=== PATIENT | male | born 1960 | race Caucasian/White ===

== ENCOUNTER 2019-03-29 08:30 | Outpatient (RCR) | payer OTHER, SELFPAY ==
--- NOTE | 2019-02-13 09:55 | HP.PTEVAL ---
Patient's Visit Information ARIANNA OROSCO is a 59 year old M referred to Physical Therapy by Jluis Guzman MD with a diagnosis of vertigo. Date of Evaluation: 02/13/19 Physical Therapist: Jluis Orosco, DPT, OCS, CSCS - Visit Plan Frequency: 2-3x /Week Duration: 4-6 Weeks Plan: 2-3x/week for 2-4 weeks to start. Given head turns 5 reps 5x /day as habituation ex. monitor this for progression, see EG if questions. Otherwise... Treat with manual c/s traction, R c/s STM adn PROM to end range of rotation and ext to tolerance. Please show cervical and postural strength for HEP. Back to doctor after 2 weeks if not improving as patient has not had other workups. - Subjective Findings: Dizzyness and doctor thinks its neck related. Been dizzy 18 months and seen 3 doctors for prednosone and infections. Had a head cold about 18 months ago and feels he just woke up with dizzyness. Bending adn getting up seem to bring it on. Has slight bit of mostion sickness much of time almost constantly. Been goofy for 18 months slightly . Quick movements seem to make it worse. Turning head makes it worse. Sleep is OK. No worse lying down. Not on dizzy meds. No heart or head scans done. Dr. guzman did not think he needed them nor did his famiy doctors. Works as a salesman selling furniture walking running, lifting. Has nto missed work due to this. Has to stop and sit at times with lightheadedness. Heavy work is worse. Heavy meaning lifting or head movement. Basic ADLs are OK and getting done. Hates exercise. [employer] work chicken [employer]s. Balance is OK, worse if lightheadedness is worse. No falls. No numbness in legs. No neck pain. R sided neck pain with turning head R yesterday in doctor office. GUILLEN now and then slightly, dull GUILLEN. - Pain GUILLEN Pain Intensity (Out of 10): 0 Pain Intensity Range: 0, 3 - Objective Walks well adn without deviations, trasnfers I. steps reciprocal withotu rail. - B [address] rd, - roll test. c/s AROM ext 44, R rotation 65 adn l rotation 64 adn pain to the right in the R c/s. UE aROM WNL. reflexes 2/3 nico dn tri. Sensation WNl in B UE. repeated retraction increases dizzyness.repeated protrusion NE. oculomotor: no nystagmus with gaze o head shake. pursuit normal. Saccades adn VOR both cause some increase symptoms transiently. - skew eye deviation. normal convergence. MSQ:head turns dizzy as our repeated 180 degree turns. HD - nystagmus but does get slightly dizzy B. others OK. No tenderness in neck. - c/s compression test. - Balance Scores Functional Gait Assessment Score: 30 % Disability: 0 CATSIB Score (Max score 120 seconds): 120 - Goals Goal 1:: Pt feel 75% better in dizzy feeling Goal Time Frame: 4-6 Weeks Goal 2:: Pt be I in appropriate ex to continue progress at home Goal Time Frame: 4-6 Weeks Goal 3:: DHI< 10% Goal Time Frame: 4-6 Weeks - Rehabilitation Potential Physical Therapy Diagnosis: vertigo unknown origin. cervical vs vest hypofunction Rehabilitation Potential: Questionable - Anticipated Interventions Patient/Client Instruction: Educate patient on: Condition, Plan of Care For the Purpose of:: To increase tolerance to activity/condition/position Therapeutic Exercise to Include: Strength training, Postural training, Passive ROM, Active ROM Comment: habituation For the Purpose of:: To improve performance and independence with ADL's, To improve ability of physical actions for home/community/work/leisure Manual Therapy Techniques to Include: Mobilization, Passive ROM Comment: manual traction For the Purpose of:: To increase tolerance to activity/condition/position, To improve ability of physical actions for home/community/work/leisure Thank you for the opportunity to evaluate your patient. For Medicare and Medicare HMO plans, please review the plan of care and approve it. It will need to be FAXED BACK to us at [phone] for Medicare purposes. For Medicare only, by signing this I certify the plan of care. Please let me know if there are questions or concerns regarding this plan of care. Physician Signature: Date:
--- NOTE | 2019-03-08 10:52 | HP.PTREVAL ---
Jluis Guzman MD, It has been my pleasure to treat ARIANNA OROSCO over the last 7 visits for vertigo. Please see the progress note below for an update on the physical therapy plan of care! Subjective: Getting better. Feels better overall. Non compliant with much exercises. Not having volume of hearing loss. Overall dizzyness much better. still gets it with bending but does not linger. GUILLEN much less. Neck pain is tight but not painful. To doctor in 2-3 weeks will see Megan. Objective/Function: 70 B rotation. 60 ext with OP no pain. Improving ROM and posture. Plan Plan: weekly x 3-4 for continue DTR/STM to neck adn cotninued PROM and encouragement of HEP Goals Goal 1:: Pt feel 75% better in dizzy feeling Goal Time Frame: 4-6 Weeks Goal Progress: Progressing Goal 2:: Pt be I in appropriate ex to continue progress at home Goal Time Frame: 4-6 Weeks Goal Progress: Goal Met, non compliant Goal 3:: DHI< 10% Goal Time Frame: 4-6 Weeks Goal Progress: Progressing Anticipated Interventions Patient/Client Instruction: Educate patient on: Condition, Plan of Care For the Purpose of:: To increase tolerance to activity/condition/position Therapeutic Exercise to Include: Strength training, Postural training, Passive ROM, Active ROM Comment: habituation For the Purpose of:: To improve performance and independence with ADL's, To improve ability of physical actions for home/community/work/leisure Manual Therapy Techniques to Include: Mobilization, Passive ROM Comment: manual traction For the Purpose of:: To increase tolerance to activity/condition/position, To improve ability of physical actions for home/community/work/leisure Please do not hesitate to contact me at [phone] by phone or if you have questions or concerns regarding this new plan of care! Sincerely, Jluis Orosco, DPT, OCS, CSCS
--- NOTE | 2019-03-29 09:16 | HP.PTDCSUM_ITS ---
HP - PT D/C Summary It has been my pleasure to treat ARIANNA OROSCO under orders from Jluis Guzman MD, for the diagnosis of vertigo for a total of 11 visit(s). Discharge Date: 03/29/19 Please see the following information for a summary of their discharge status. - Subjective Subjective: Saw Dr. Guzman again adn he thinks his blood pressure meds may be out of whack adn causing dizzyness. Dizzyness is better with treatment up to 80- 90% better but still has flashes of dizzyness with sitting up. Neck feels better. GUILLEN much better. Life is normal activitiy garcia. Gets lightheaded feelign daily for up to a few hours. - Pain GUILLEN Pain Intensity (Out of 10): 0 - Overall Improvement % Improvement: 80 - Objective Objective/Function: ROM c/s WFL adn without pain today 50 ext adn approx 60 B rotations. FGA is good. - Goals Goal 1:: Pt feel 75% better in dizzy feeling Goal Progress: at times Goal 2:: Pt be I in appropriate ex to continue progress at home Goal Progress: Goal Met, non compliant Goal 3:: DHI< 10% Goal Progress: Progressing - Plan Plan: d/c - D/C Information Discharge Comments: Patient will f/u with family doctor as requested by Dr. Guzman for blood pressure meds check. If there are questions or concerns regarding this patient's physical therapy, please feel free to call me at [phone]. Thank you for the referral of this patient. Sincerely, Jluis Orosco, DPT, OCS, CSCS
== END 2019-03-29 19:00 | disposition home or self-care (01) ==
LOC: PT 08:30
PROVIDERS: Family Provider Family Medicine; PCP Family Medicine; Referring Provider Otolaryngology; Visit Provider Otolaryngology
DX: R42 Dizziness and giddiness (principal)
CPT/HCPCS: 97110; 97140; 97163; 97530

== ENCOUNTER → 2020-03-12 | Outpatient (CLI) | payer BC, SELFPAY ==
[2020-03-12 10:26] LABS: ALB/GLOB Ratio 1.1 RATIO (0.9-2.4); AST(SGOT) 11 U/L (15-37); Alanine Aminotransfer ALT/SGPT 22 U/L (16-61); Albumin, Serum 3.7 g/dL (3.2-5.0); Alkaline Phosphatase 48 U/L (45-117); Anion Gap 5 (5-15); BUN 14 mg/dL (7-18); BUN/Creat Ratio 11.4 RATIO (10-20); Calcium,Total 8.8 mg/dL (8.5-10.1); Chloride 107 mmol/L (98-107); Cholesterol 169 mg/dL (200); Creatinine, Serum 1.23 mg/dL (0.70-1.30); EST Glomerular Filtration Rate 63 mL/min (>60); Est Glom Filt Rate - Afr Amer 77 mL/min (>60); Globulin 3.3 g/dL (2.2-4.2); Glucose 115 mg/dL (74-106); High Density Lipoprotein 34 mg/dL; PSA,Total- Diagnostic 2.56 ng/mL (0.0-4.0); Potassium 3.9 mmol/L (3.5-5.1); Sodium Level 140 mmol/L (136-145); Triglycerides 125 mg/dL; Very Low Density Lipoprotein 25 mg/dL (5-40)
== END | disposition home or self-care (01) ==
LOC: MFPLAB 08:38
PROVIDERS: PCP Family Medicine; Referring Provider Family Medicine; Visit Provider Family Medicine
DX: E78.00 Pure hypercholesterolemia, unspecified (principal); R35.0 Frequency of micturition
CPT/HCPCS: 36415; 80053; 80061; 84153

== ENCOUNTER → 2020-09-18 07:30 | Outpatient (CLI) | payer BC, SELFPAY ==
[2020-09-18 10:32] LABS: PSA,Total- Diagnostic 2.85 ng/mL (0.0-4.0)
[2020-09-18 10:34] LABS: Hemoglobin A1c 5.6 % (3.8-5.6)
== END ==
PROVIDERS: PCP Family Medicine; Referring Provider Family Medicine; Visit Provider Family Medicine
DX: R73.01 Impaired fasting glucose (principal); R35.0 Frequency of micturition
CPT/HCPCS: 36415; 83036; 84153

== ENCOUNTER → 2020-12-22 10:36 | Outpatient (CLI) | payer BC, SELFPAY ==
[2020-12-22 13:10] LABS: HIV - WCH Non-Reactive (Nonreactive); Syphilis Antibodies Non-reactive
[2020-12-22 16:44] LABS: Chlamydia Trachomatis by PCR Negative (Negative)
[2020-12-22 16:45] LABS: Probe Check PASS; Sample Adequacy Control PASS; Specimen Processing Control PASS
[2020-12-23 08:09] LABS: HEPATITIS B SURFACE AG Negative (Negative); Hepatitis A AB, Total Positive (Negative); Hepatitis A IgM Antibody Negative (Negative); Hepatitis B Core AB IgM Negative (Negative); Hepatitis B Core Ab Total Negative (Negative); Hepatitis C Ab <0.1 s/co ratio (0.0-0.9)
[2020-12-23 10:20] LABS: Hep B Surface Antibodies Non Reactive (.)
== END ==
PROVIDERS: PCP Family Medicine; Referring Provider Family Medicine; Visit Provider Family Medicine
DX: Z72.51 High risk heterosexual behavior (principal)
CPT/HCPCS: 36415; 86703; 86704; 86705; 86706; 86708; 86709; 86780; 86803; 87340; 87491

== ENCOUNTER → 2021-04-27 07:10 | Outpatient (CLI) | payer BC, SELFPAY ==
--- NOTE | 2021-04-27 07:12 | ECHOCS_ITS ---
Reason For Study: Afib/Flutter Procedure This was a 2D Doppler, Color Flow transthoracic echocardiogram. The study was technically difficult. Contrast injection was performed. Exam performed in department. Left Ventricle Normal left ventricle. Left ventricular systolic function is normal. The estimated ejection fraction is 60 %. Stage 1 diastolic dysfunction. No regional wall motion abnormalities noted. Right Ventricle Normal RV size. Normal systolic function. Atria Normal left atrium. Normal right atrium. Mitral Valve Normal mitral valve. Tricuspid Valve Normal tricuspid valve. Aortic Valve Normal aortic valve. Trisinus/trileaflet aortic valve. Pulmonic Valve The pulmonic valve is not well visualized. Great Vessels Normal aortic root. The pulmonary artery is normal size. Normal inferior vena cava. Pericardium/Pleural No pericardial effusion. Medication 22 gauge I.V. with prn adaptor inserted into right arm. Diluted definity 3ml given slow IV push to enhance endocardial definition. MMode/2D Measurements & Calculations LVIDd: 4.5 cm IVSd: 1.3 cm LA dimension: 3.6 cm LVIDs: 2.2 cm LVPWd: 1.2 cm FS: 50.5 % LAV(MOD-bp): 50.6 ml LA A4 area: 17.8 cm2 RA A4 area: 14.1 cm2 LAV(MOD-bp) Indexed: 23.7 ml/m2 LAV(MOD-sp2): 50.4 ml LAV(MOD-sp4): 49.3 ml Time Measurements MV dec time: 0.30 sec Doppler Measurements & Calculations MV E max esa: 52.8 cm/sec Lat Peak E' Esa: 13.9 cm/sec Med Peak E' Esa: 7.8 cm/sec MV A max esa: 76.2 cm/sec E/E' lat: 3.8 E/E' med: 6.8 MV E/A: 0.69 MV V2 max: 75.5 cm/sec MV P1/2t max esa: 68.2 cm/sec Ao V2 max: 124.1 cm/sec MV max P.3 mmHg MV P1/2t: 70.6 msec Ao max P.2 mmHg MV V2 mean: 45.9 cm/sec MV dec slope: 282.7 cm/sec2 MV mean P.97 mmHg MV V2 VTI: 19.4 cm MVA(P1/2t): 3.1 cm2 LV V1 max: 115.1 cm/sec PA V2 max: 111.7 cm/sec LV V1 max P.3 mmHg ECHO/Echo Complete W/ Contrast Interpretation Summary Normal left ventricle. Left ventricular systolic function is normal. The estimated ejection fraction is 60 %. Stage 1 diastolic dysfunction. Contrast injection was performed. Ordering Physician: Leonard Dai Referring Physician: Leonard Dai Performed By: Ervin Salomon RCS
--- NOTE | 2021-04-27 17:39 | STRESSREP ---
Stress Test Report Exercise myocardial perfusion stress test. 61-year-old man with a history of atrial fibrillation. Medications atorvastatin bupropion metoprolol. Stress protocol: Rest EKG demonstrates sinus bradycardia with a rate of 54 bpm normal intervals are noted resting blood pressure is 118/70 mmHg. The patient exercised according to regular Jeremías protocol for total duration of 9 minutes and 30 seconds. Patient completed 30 seconds into stage IV of the Jeremías protocol the maximum heart rate attained was 122 bpm which was 77% of maximum predicted heart rate the maximum workload was 11.7 metabolic equivalents. At rest there were no ST or T wave changes noted to suggest ischemia and at peak exercise upsloping ST changes were noted with did not meet the criteria for ischemia. No clinical angina was noted the test was terminated due to dyspnea. The peak blood pressure was noted to be 180/68 mmHg. Myocardial perfusion protocol. 11.0 mCi of technetium 99m sestamibi was injected at rest. The patient exercised according to regular Jeremías protocol for total duration of 9-1/2 minutes and at peak exercise 33.7 mCi of technetium 99m sestamibi was injected stress images were obtained stress and rest images were reconstructed and compared in the short axis vertical long and horizontal long axis. Gated images were also obtained per Perfusion SPECT analysis: Review of the stress images demonstrated normal uptake of tracer noted in all areas of the myocardium. The resting images similarly demonstrated normal uptake of tracer noted in all areas of the myocardium. There were no areas of reversibility to suggest ischemia and no previous infarct was noted. Gated SPECT analysis: The gated ejection fraction was noted to be 57%. Conclusion: Normal exercise myocardial perfusion stress test at a high workload. Preserved ejection fraction. Excellent functional capacity noted.
== END ==
PROVIDERS: PCP Family Medicine; Referring Provider Internal Medicine Cardiovascular Disease; Visit Provider Internal Medicine Cardiovascular Disease
DX: I48.0 Paroxysmal atrial fibrillation (principal); I48.92 Unspecified atrial flutter
CPT/HCPCS: 78452; 93017; 93306; A9500; Q9957; A4216; C8929; J3490

== ENCOUNTER → 2021-05-19 14:10 | Outpatient (CLI) | payer BC, SELFPAY ==
[2021-05-19 18:20] LABS: Anion Gap 5 (5-15); BUN 18 mg/dL (7-18); BUN/Creat Ratio 15.9 RATIO (10-20); Calcium,Total 8.8 mg/dL (8.5-10.1); Chloride 106 mmol/L (98-107); Cholesterol 176 mg/dL (200); Creatinine, Serum 1.13 mg/dL (0.70-1.30); EST Glomerular Filtration Rate 70 mL/min (>60); Est Glom Filt Rate - Afr Amer 84 mL/min (>60); Glucose 88 mg/dL (74-106); High Density Lipoprotein 37 mg/dL; Potassium 4.4 mmol/L (3.5-5.1); Sodium Level 138 mmol/L (136-145); Triglycerides 87 mg/dL; Very Low Density Lipoprotein 17 mg/dL (5-40)
[2021-05-19 19:58] LABS: Chlamydia Trachomatis by PCR Negative (Negative); Neisserai gonorrhoeae by PCR Negative (Negative); Probe Check PASS; Sample Adequacy Control PASS; Specimen Processing Control PASS
[2021-05-20 08:38] LABS: HIV - WCH Non-Reactive (Nonreactive); Syphilis Antibodies Non-reactive
== END ==
PROVIDERS: PCP Family Medicine; Referring Provider Family Medicine; Visit Provider Family Medicine
DX: E78.00 Pure hypercholesterolemia, unspecified (principal); Z72.51 High risk heterosexual behavior; I10 Essential (primary) hypertension
CPT/HCPCS: 36415; 80048; 80061; 86703; 86780; 87491; 87591

== ENCOUNTER → 2022-01-12 | Outpatient (CLI) | payer BC, SELFPAY ==
--- NOTE | 2022-01-12 15:32 | NEURO ---
NCS and/or EMG Patient Report Ordering Doctor: Ankur Acevedo DATE OF SERVICE: 01/12/22 Tavon presents for electrodiagnostic testing of the right upper limb. He has numbness and tingling in the right hand radiating into the arm. Electrodiagnostic findings: Right median motor nerve demonstrates normal distal latency, amplitude and conduction velocity. Normal right ulnar motor response. Normal median and ulnar F waves. Normal median sensory latency at the wrist. Normal median palmar latency. Normal ulnar and radial sensory responses. On needle EMG, all muscles tested in the right upper limb showed no evidence of denervation with normal motor unit action potentials. Electrodiagnostic impression: There is a normal electrodiagnostic study of the right upper limb. There is no electrodiagnostic evidence for peripheral neuropathy, including carpal tunnel syndrome.
== END | disposition home or self-care (01) ==
LOC: PSN 14:32
PROVIDERS: PCP Family Medicine; Referring Provider Family Medicine; Visit Provider Family Medicine
DX: R20.0 Anesthesia of skin (principal)
CPT/HCPCS: 95886; 95910

== ENCOUNTER → 2022-04-06 | Outpatient (CLI) | payer BC, SELFPAY ==
--- NOTE | 2022-04-06 13:58 | ART_ITS ---
Reason For Study: Numbness of right hand Procedure A bilateral upper extremity continuous wave Doppler with analog waveform analysis and segmental pressures. Left Segmental Pressures Left brachial= 111mmHg. Left radial= 144mmHg. Left ulnar= 138mmHg. Left digit = 135 mmHg. The left radial waveforms are triphasic. The left ulnar waveforms are triphasic. Right Segmental Pressures Right brachial= 115mmHg. Right radial= 145mmHg. Right ulnar= 154mmHg. Right digit = 142 mmHg. The right radial waveforms are triphasic. The right ulnar waveforms are triphasic. Indices The wrist-braichial index by the radial artery is 1.26. The wrist-brachial index by the ulnar artery is 1.34. The right digital-brachial index is 1.23. The wrist-braichial index by the radial artery is 1.25. The wrist-brachial index by the ulnar artery is 1.20. The left digital-brachial index is 1.17. VL/Upper Extremity Arterial Study Interpretation Summary Normal right radial and ulnar wrist brachial indices of 1.26 and 1.34 respectiv camille with normal triphasic Doppler waveforms Normal right upper extremity volume pulse recordings with normal digital brachi al index of 1.23 Normal left upper extremity radial and ulnar wrist brachial indices of 1.25 and 1.2 respectively with normal triphasic Doppler waveforms Left upper extremity volume pulse recordings with normal digital brachial index of 1.17 Ordering Physician: Ankur Acevedo Referring Physician: ANKUR ACEVEDO MD Performed By: Emi Head RVT
== END | disposition home or self-care (01) ==
LOC: CVS 13:56
PROVIDERS: PCP Family Medicine; Referring Provider Family Medicine; Visit Provider Family Medicine
DX: R20.0 Anesthesia of skin (principal)
CPT/HCPCS: 93923

== ENCOUNTER → 2022-05-04 | Outpatient (CLI) | payer BC, SELFPAY ==
[2022-05-04 18:02] LABS: Erythrocyte Sedimentation Rate 9 mm/hr (0-20)
[2022-05-04 18:23] LABS: CRP < 2.90 mg/L (0.0-3.0); Rheumatoid Factor < 10.0 IU/mL (<15)
[2022-05-06 18:22] LABS: ANTINUCLEAR ANTIBODIES DIRECT Negative (Negative)
== END | disposition home or self-care (01) ==
LOC: MFPLAB 17:06
PROVIDERS: PCP Family Medicine; Referring Provider Family Medicine; Visit Provider Family Medicine
DX: M79.89 Other specified soft tissue disorders (principal)
CPT/HCPCS: 36415; 85652; 86038; 86140; 86431

== ENCOUNTER 2023-01-16 10:05 | Observation (INO) | payer BC, SELFPAY ==
[2023-01-16] VITALS (11 sets, daily range): BP systolic 107–145; BP diastolic 76–105; PULSE 64–119; RESP 14–18; TEMP 36.2–36.6; O2SAT 93–98; BMI 29.0; BMI 29.1
--- NOTE | 2023-01-16 10:18 | EKG12_ITS ---
Test Reason : CP Blood Pressure : / mmHG Vent. Rate : 085 BPM Atrial Rate : 000 BPM P-R Int : 000 ms QRS Dur : 088 ms QT Int : 330 ms P-R-T Axes : 000 -18 003 degrees QTc Int : 392 ms Atrial fibrillation Abnormal ECG Confirmed by VIGNESH VILLEGAS ([id number]), supervising film or videotape editor ERLIN SUAREZ ([id number]) on 01/21/2023 9:28:59 AM Referred By: MARIANN Confirmed By:VIGNESH VILLEGAS
--- NOTE | 2023-01-16 10:19 | EDS_ITS ---
HPI History of Present Illness Chief Complaint: Chest Pain Informant: patient Onset/Context/Timing Onset: Weeks Activity at onset: gradual Timing: Waxes and wanes Narrative Narrative: Patient presents from cardiology office secondary to chest pain. He states about 10 days ago he had rather significant substernal chest pain with pain in his left elbow. He continues to have some mild pain but is moved to the left shoulder region. 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 He denies shortness of breath. He has a history of paroxysmal A-fib and is in A-fib today. He takes baby aspirin only secondary to a load chads Vas score. He reports having a stress test in the past but he has never had a heart cath. [facility] Medical History Anxiety BPH (benign prostatic hyperplasia) Erectile dysfunction Essential hypertension GERD (gastroesophageal reflux disease) Hyperlipidemia IBS (irritable bowel syndrome) Malignant melanoma of left shoulder Paroxysmal atrial fibrillation Personal history of malignant melanoma Home Medications atorvastatin 10 mg tablet 10 mg PO QHS 03/31/21 [History Last Taken 01/15/23] bupropion HCl 300 mg 24 hr tablet, extended release 300 mg PO DAILY 03/31/21 [History Last Taken 01/16/23] metoprolol tartrate 25 mg tablet 75 mg PO BID 03/31/21 [History Last Taken 01/16/23] omeprazole 20 mg capsule,delayed release 20 mg PO DAILY 03/31/21 [History Last Taken 01/16/23] loratadine 10 mg tablet 10 mg PO DAILY 10/25/22 [History Last Taken 01/16/23] tamsulosin 0.4 mg capsule 0.8 mg PO QHS 10/25/22 [History Last Taken 01/15/23] aspirin 81 mg tablet,delayed release (Adult Aspirin Regimen) 81 mg PO DAILY 01/12/23 [History Last Taken 01/16/23] Allergy/AdvReac Type Severity Reaction Status Date / Time amoxicillin [From Augmentin] AdvReac gi upset Verified 01/16/23 10:08 cerivastatin [From Baycol] AdvReac unknown Verified 01/16/23 10:08 clavulanic acid AdvReac gi upset Verified 01/16/23 10:08 [From Augmentin] fluoxetine AdvReac lethargic Verified 01/16/23 10:08 sertraline AdvReac gi upset Verified 01/16/23 10:08 Family History Mother Heart disease Atrial flutter/atrial fib Father CAD (coronary artery disease), Onset Age: 83 CABG Social History Smoking Status: Never smoker alcohol intake: current alcohol intake frequency: a few times a week substance use type: does not use caffeine: Yes Type: carbonated beverages Number of servings: 2 and coffee Number of servings: 2 ROS ROS ED Constitutional Constitutional ED: Denies chills or fever(s) Eyes Eyes: Denies change in vision or discharge from eye(s) ENT ENT ED: Denies discharge from eye(s), rhinorrhea or sore throat Cardiovascular Cardiovascular: Reports chest pain; Denies palpitations Respiratory/Chest Respiratory/Chest: Denies cough or dyspnea Gastrointestinal Gastrointestinal: Denies abdominal pain, nausea or vomiting Musculoskeletal Musculoskeletal: Denies back pain or extremity pain Integumentary Denies Abrasions or rash Neurologic Neurologic: Denies headache(s) or weakness Psychiatric Psychiatric: Denies anxiety or depression Allergic/Immunologic Allergic/Immunologic ED: Denies lip swelling or urticaria EXAM Physical Exam Const Vital Signs: 01/16/23 10:06 01/16/23 10:08 01/16/23 10:18 Temperature 97.1 F L Temperature Source Temporal Pulse Rate 83 Respiratory Rate 18 Respiratory Effort Normal Blood Pressure 131/103 H Blood Pressure Mean 112 Pulse Ox 96 Oxygen Delivery Method Room Air Room Air Positive well nourished and well developed General Appearance ED: well developed HEENT Reports normocephalic and head/scalp atraumatic Eyes PERRL and EOMs intact bilaterally Neck supple Chest Wall inspection of chest normal and palpation of chest normal Resp normal respiratory effort and clear to auscultation bilaterally Cardio Rhythm: abnormal rhythm irregularly irregular GI normal to inspection, nondistended, normoactive bowel sounds Palpation: soft Extremity normal to inspection Neuro oriented x3 and no sensory deficits noted Sensorium / Orientation: alert Motor Exam: strength 5/5 throughout Psych mental status grossly normal Skin no rashes or lesions noted Heart Score History: Moderately Suspicious ECG: Normal Age: >45 - <65 years Risk Factors: 1 or 2 Risk Factors Troponin: </= Normal Limit Score: 3 MDM MDM MDM Narrative Medical decision making narrative: Patient did take 1 baby aspirin this morning so was given 3 additional baby aspirin at this time. Patient placed on manager monitoring. EKG obtained to evaluate for cardiac arrhythmia/ischemia. Labwork obtained to evaluate for leukocytosis, anemia, and electrolyte derangement. Chest x-ray obtained to evaluate for acute lung pathology, cardiac size, or mediastinal abnormality. History & Record Review Discussion w/independent historian: Patient Additional record(s) reviewed:: Prior outpatient record and Prior labs Lab Data Attestation: I reviewed the patient's lab results. Labs: Laboratory Results - last 24 hr 01/16/23 10:30 WBC 6.9 RBC 5.45 Hgb 17.1 H Hct 51.0 MCV 93.6 MCH 31.4 MCHC 33.5 RDW Std Deviation 43.3 RDW Coeff of Praveena 12.6 Plt Count 96 L MPV 10.7 Immature Gran % (Auto) 0.400 Neut % (Auto) 67.8 Lymph % (Auto) 19.9 Bowie % (Auto) 9.6 Eos % (Auto) 1.6 Baso % (Auto) 0.7 Absolute Neuts (auto) 4.7 Absolute Lymphs (auto) 1.37 Nucleated RBC % 0 Sodium 138 Potassium 4.2 Chloride 108 H Carbon Dioxide 27.0 Anion Gap 3 L BUN 22 H Creatinine 1.41 H Est GFR (MDRD) Af Amer 65 Est GFR (MDRD) Non-Af 54 L BUN/Creatinine Ratio 15.6 Glucose 117 H Calcium 8.9 Troponin I High Sens 4 Radiography Chest X-Ray - ED: 1 View, Read by ED Physician, Normal, Heart, Lungs and Mediastinum Diagnostic Testing: Clinical Impression(s) from Imaging Studies Chest X-Ray 01/16/23 10:30 IMPRESSION: No acute abnormality is seen. Electronically Signed: Joseph Garcia MD at 10:56 EDT , EKG Initial EKG: Attestation: I personally reviewed and interpreted this EKG as follows: Interpretation: Atrial Fibrillation (Atrial fibrillation [address] change.) Differential Diagnosis Chest pain/SOB: ACS ACS: Positive for no evidence of ACS based on cardiac biomarkers and EKG without ischemia and pneumothorax Reason(s) pneumothorax less likely: Positive for bilateral breath sounds and DOUBLE BOTTOM DRIVER withhout PTX Treatment and Re-Evaluation :: On repeat evaluation patient resting comfortably. CBC was normal white count at 6.9. Hemoglobin is concentrated at 17.1. Chemistry studies reveal a BUN of 22 and a creatinine of 1.41. This is an increased when compared to his prior labs from 2 years ago. His troponin is 4. Portable chest x-ray per my interpretation reveals no acute abnormalities. Given the hemoconcentration and bump in creatinine, a liter of IV fluids is ordered. I spoke with Dr. Mtz, on-call for cardiology. He asked that the patient be admitted for further evaluation and probable stress test in the morning. I contacted the hospitalist. Discharge Plan Triage Chief Complaint: Chest Pain ED Provider: Ivone Marsh Dx/Rx/DC Orders Clinical Impression: Chest pain Prescriptions: No Action metoprolol tartrate 25 mg tablet 75 mg PO BID omeprazole 20 mg capsule,delayed release(DR/EC) 20 mg PO DAILY atorvastatin 10 mg tablet 10 mg PO QHS bupropion HCl 300 mg tablet extended release 24 hr 300 mg PO DAILY tamsulosin 0.4 mg capsule 0.8 mg PO QHS loratadine 10 mg tablet 10 mg PO DAILY aspirin [Adult Aspirin Regimen] 81 mg tablet,delayed release (DR/EC) 81 mg PO DAILY Primary Care Provider: Ankur Acevedo Referrals: Ankur Acevedo MD [Primary Care Provider] - Disposition Disposition: Acute Care Hospital [facility]
[2023-01-16] MEDS: Aspirin 81 MG TAB.CHEW 243 MG PO (10:27)
--- NOTE | 2023-01-16 10:30 | RAD_ITS ---
STUDY: X-RAY CHEST REASON FOR EXAM: Male, 62 years old. Chest pain TECHNIQUE: Single AP portable view of the chest. COMPARISON: None. FINDINGS: EKG electrodes are seen. The lungs are clear and expanded. There is no demonstrated pleural abnormality. Normal size heart. Normal mediastinum and jose miguel. Normal visualized pulmonary arteries. Normal visualized aortic arch and descending thoracic aorta. There are degenerative changes of the visualized thoracic spine. Normal visualized ribs, clavicles, and shoulders. There is no demonstrated abnormality of the visualized soft tissue structures of the upper abdomen. RAD/Chest 1 View (Portable) IMPRESSION: No acute abnormality is seen. Electronically Signed: Joseph Garcia MD at 10:56 EDT ,
[2023-01-16 10:39] LABS: Absolute Lymphocyte Count 1.37 X10^3/uL (0.83-4.51); Absolute Neutrophil Count 4.7 X10^3/uL (2.0-7.7); Basophil# 0.05 X10^3/uL; Basophil% 0.7 % (0-1); Eosinophil# 0.11 X10^3/uL; Eosinophils% 1.6 % (0-5); Hemoglobin 17.1 g/dL (13.0-16.5); Lymphocyte # 1.37 X10^3/ul (0.83-4.51); Lymphocyte % 19.9 % (19-41); Mean Corp Hgb Conc 33.5 g/dL (32-36); Mean Corpuscular Hgb 31.4 pg (27.0-32.0); Mean Corpuscular Volume 93.6 fL (80-94); Mean Platelet Vol. 10.7 fl (6.2-12.0); Monocyte# 0.66 X10^3/uL; Monocyte% 9.6 % (0-10); NRBC Flagged by Analyzer 0 % (0-5); Neutrophil # 4.65 X10^3/uL (2.7-7.7); Neutrophil % 67.8 % (47-70); POSITIVE COUNT YES; Platelet Count 96 K/mm3 (150-450); RBC Distribution Width CV 12.6 % (11.6-14.6); RBC Distribution Width SD 43.3 fl (35.1-43.9); Red Blood Count 5.45 M/mm3 (4.6-6.2); White Blood Count 6.9 K/mm3 (4.4-11.0)
[2023-01-16 10:55] LABS: Anion Gap 3 (5-15); BUN 22 mg/dL (7-18); BUN/Creat Ratio 15.6 RATIO (10-20); Calcium,Total 8.9 mg/dL (8.5-10.1); Chloride 108 mmol/L (98-107); Creatinine, Serum 1.41 mg/dL (0.70-1.30); EST Glomerular Filtration Rate 54 mL/min (>60); Est Glom Filt Rate - Afr Amer 65 mL/min (>60); Glucose 117 mg/dL (74-106); Potassium 4.2 mmol/L (3.5-5.1); Sodium Level 138 mmol/L (136-145); Troponin-I HS (w/2H Reflex) 4 pg/mL (3.0-78.0)
[2023-01-16] MEDS: 0.9% Normal Saline 1,000 ML 999 ML IV (11:16)
[2023-01-16 12:34] LABS: Reflex Troponin-HS? (from REC) Y
[2023-01-16 13:13] LABS: Troponin-I HS 4 pg/mL (3.0-78.0)
--- NOTE | 2023-01-16 13:22 | CON.PCM.CA_ITS ---
Documented by User: Cecelia BROCK, DELMY 01/16/23 13:30 Assessment & Plan Assessment/Plan (1) Chest pain: (2) Paroxysmal atrial fibrillation: (3) Essential hypertension: (4) Hyperlipidemia: PLAN: Plan * With patient's chest and arm discomfort, concerned this could be angina related, would like to obtain a stress test and echocardiogram for further evaluation. * Patient does turn 63 in a few weeks. At that time he will be a [id number] of 2. After patient does have his stress test would like to switch him over to Eliquis. He patient will be anticoagulated with Lovenox prior to his stress test. His rate is controlled on his current dose of metoprolol. HPI Consult Data Date of Consult: 01/16/23 HPI Narrative HPI Narrative: ARIANNA CRESPO, is a 62 M who presented to the office for an EKG today for concerns over afib. Since he was not anticoagulated he was asked to come in for an EKG. at that time he had noted chest pain and arm pain for the last couple weeks. Based on the chest and arm pain he was asked to go to the emergency room for further evaluation. His troponins are negative x2. Patient does have a history of hypertension and paroxysmal atrial fibrillation. Based on patient's symptoms of chest and arm pain would like for patient to be admitted to the hospital for further cardiac evaluation to obtain a stress test and an echocardiogram. ON LICENSE OF [facility] Medical History Anxiety BPH (benign prostatic hyperplasia) Erectile dysfunction Essential hypertension GERD (gastroesophageal reflux disease) Hyperlipidemia IBS (irritable bowel syndrome) Malignant melanoma of left shoulder Paroxysmal atrial fibrillation Personal history of malignant melanoma Home Medications atorvastatin 10 mg tablet 10 mg PO QHS 03/31/21 [History Last Taken 01/15/23] bupropion HCl 300 mg 24 hr tablet, extended release 300 mg PO DAILY 03/31/21 [History Last Taken 01/16/23] metoprolol tartrate 25 mg tablet 75 mg PO BID 03/31/21 [History Last Taken 01/16/23] omeprazole 20 mg capsule,delayed release 20 mg PO DAILY 03/31/21 [History Last Taken 01/16/23] loratadine 10 mg tablet 10 mg PO DAILY 10/25/22 [History Last Taken 01/16/23] tamsulosin 0.4 mg capsule 0.8 mg PO QHS 10/25/22 [History Last Taken 01/15/23] aspirin 81 mg tablet,delayed release (Adult Aspirin Regimen) 81 mg PO DAILY 01/12/23 [History Last Taken 01/16/23] Allergy/AdvReac Type Severity Reaction Status Date / Time amoxicillin [From Augmentin] AdvReac gi upset Verified 01/16/23 10:08 cerivastatin [From Baycol] AdvReac unknown Verified 01/16/23 10:08 clavulanic acid AdvReac gi upset Verified 01/16/23 10:08 [From Augmentin] fluoxetine AdvReac lethargic Verified 01/16/23 10:08 sertraline AdvReac gi upset Verified 01/16/23 10:08 Family History Mother Heart disease Atrial flutter/atrial fib Father CAD (coronary artery disease), Onset Age: 83 CABG Social History Smoking Status: Never smoker alcohol intake: current alcohol intake frequency: a few times a week substance use type: does not use caffeine: Yes Type: carbonated beverages Number of servings: 2 and coffee Number of servings: 2 ROS Constitutional Constitutional: Denies change in weight, chills, fatigue, frequent falls, headache(s) or lethargy Eyes Eyes: Denies acute decrease in peripheral vision, blurry vision or change in vision ENT HEENT: Denies dizziness, dry mouth, epistaxis, headache(s), tinnitus or vertigo Cardiovascular Cardiovascular: Reports chest pain at rest, chest pain with activity and irregular heart rhythm; Denies claudication, dyspnea at rest, dyspnea on exertion, edema, lightheadedness, orthopnea, orthostatic symptoms, palpitations or pedal edema Respiratory/Chest Respiratory/Chest: Denies cough, dyspnea, dyspnea on exertion, tachypnea or wheezing Gastrointestinal Gastrointestinal: Denies abdominal pain, bloating, coffee ground emesis, diar lay, heartburn, hematemesis, hematochezia, melena or nausea Genitourinary Genitourinary: Denies hematuria Musculoskeletal Musculoskeletal: Denies myalgias, numbness or tingling Neurologic Neurologic: Denies abnormal gait, abnormal speech, memory loss, paresthesias or weakness Physical Exam Const alert, oriented x3, no apparent distress and healthy appearing HEENT normocephalic, head/scalp atraumatic, hearing grossly normal bilaterally, external ears normal, external nose normal and moist oral mucous membranes Eyes PERRL, EOMs intact bilaterally, conjunctivae normal and no scleral icterus Neck no lymphadenopathy, supple and no JVD Resp normal respiratory effort and clear to auscultation bilaterally Cardio regular rate, S1 normal heart sound, S2 normal heart sound, no murmurs, no rub, no gallops, no clicks, no JVD and peripheral pulses 2+ throughout Rhythm: abnormal rhythm irregularly irregular GI normal to inspection, nondistended, normoactive bowel sounds, soft to palpation, non-tender and non-distended Extremity normal to inspection, normal capillary refill, no clubbing, cyanosis or edema and no pedal edema Neuro oriented x3, CN's II-XII intact bilaterally, moves all extremities and no focal motor deficits Psych cooperative and affect normal Risk Stratification Risk Stratification Applicable: Yes >/= 3 CAD Risk Factors (HTN, HLD, DM, family hx of CAD, or current smoker): No Aspirin Use in the Past 7 Days: Yes Severe Angina (>/= episodes in 24 hours): No EKG ST Changes >/= 0.5mm: No Positive Cardiac Marker: No Charges/Coding Visit Charges Office Visits / Consults: 50806 OP Consult L3 Objective Data Vital Signs: Vital Signs Temp Pulse Resp BP Pulse Ox O2 Del Method 97.8 F 78 14 145/79 H 98 Room Air 01/16/23 12:16 01/16/23 12:16 01/16/23 12:16 01/16/23 12:16 01/16/23 12:16 01/16/23 12:16 Oxygen Delivery Method Room Air Lab / Micro Data 01/16/23 10:30 01/16/23 10:30 Labs: Laboratory Results - last 24 hr 01/16/23 10:30: WBC 6.9, RBC 5.45, Hgb 17.1 H, Hct 51.0, MCV 93.6, MCH 31.4, MCHC 33.5, RDW Std Deviation 43.3, RDW Coeff of Praveena 12.6, Plt Count 96 L, MPV 10.7, Immature Gran % (Auto) 0.400, Neut % (Auto) 67.8, Lymph % (Auto) 19.9, Mon o % (Auto) 9.6, Eos % (Auto) 1.6, Baso % (Auto) 0.7, Absolute Neuts (auto) 4.7, Absolute Lymphs (auto) 1.37, Nucleated RBC % 0, Sodium 138, Potassium 4.2, Chloride 108 H, Carbon Dioxide 27.0, Anion Gap 3 L, BUN 22 H, Creatinine 1.41 H, Est GFR (MDRD) Af Amer 65, Est GFR (MDRD) Non-Af 54 L, BUN/Creatinine Ratio 15.6, Glucose 117 H, Calcium 8.9, Troponin I High Sens 4 01/16/23 12:44: Troponin I High Sens 4 Cardiology Labs/Tests 01/16/23 10:30: WBC 6.9, RBC 5.45, Hgb 17.1 H, Hct 51.0, MCV 93.6, MCH 31.4, MCHC 33.5, Plt Count 96 L, MPV 10.7, Immature Gran % (Auto) 0.400, Neut % (Auto) 67.8, Lymph % (Auto) 19.9, Whiteside % (Auto) 9.6, Eos % (Auto) 1.6, Baso % (Auto) 0.7, Absolute Neuts (auto) 4.7, Nucleated RBC % 0, Sodium 138, Potassium 4.2, Chloride 108 H, Carbon Dioxide 27.0, Anion Gap 3 L, BUN 22 H, Creatinine 1.41 H, Est GFR (MDRD) Af Amer 65, Est GFR (MDRD) Non-Af 54 L, BUN/Creatinine Ratio 15.6, Glucose 117 H, Calcium 8.9 Rhythm: EKG: ECHO: Stress Test: Cardiac Cath: PCI: CT Surgery: Holter monitor: EPS: PPM: CXR: Chest CT Scan: Radiography Diagnostic Testing: Radiology Impression Chest X-Ray 01/16/23 10:30 IMPRESSION: No acute abnormality is seen. Electronically Signed: Joseph Garcia MD at 10:56 EDT , Documented by User: Dr. Sabino Mtz MD 01/16/23 14:37 Assessment & Plan Assessment/Plan (1) Chest pain: (2) Paroxysmal atrial fibrillation: (3) Essential hypertension: (4) Hyperlipidemia: PLAN: Plan * With patient's chest and arm discomfort, concerned this could be angina related, would like to obtain a stress test and echocardiogram for further evaluation. * Patient does turn 63 in a few weeks. At that time he will be a [id number] of 2. After patient does have his stress test would like to switch him over to Eliquis. He patient will be anticoagulated with Lovenox prior to his stress test. His rate is controlled on his current dose of metoprolol. I independently examined this patient in the ER reviewed all his history including recent visit to the cardiology outpatient Review the EKG prior cardiac evaluation Patient had paroxysmal A-fib Hypertension Presenting with left upper chest pain. The underlying rhythm is A-fib on the EKG and the initial set of cardiac markers negative I concur with the cardiac care plan to admit the patient with the plan of evaluating with the nuclear stress test/Lexiscan sestamibi In addition I discussed the rate control using beta-mandeep and adding anticoagulation as he is 63-year-old with history of hypertension and high risk for stroke based on [id number] score * HPI Consult Data Date of Consult: 01/16/23 ON LICENSE OF [facility] Medical History Anxiety BPH (benign prostatic hyperplasia) Erectile dysfunction Essential hypertension GERD (gastroesophageal reflux disease) Hyperlipidemia IBS (irritable bowel syndrome) Malignant melanoma of left shoulder Paroxysmal atrial fibrillation Personal history of malignant melanoma Home Medications atorvastatin 10 mg tablet 10 mg PO QHS 03/31/21 [History Last Taken 01/15/23] bupropion HCl 300 mg 24 hr tablet, extended release 300 mg PO DAILY 03/31/21 [History Last Taken 01/16/23] metoprolol tartrate 25 mg tablet 75 mg PO BID 03/31/21 [History Last Taken 01/03 09/25] omeprazole 20 mg capsule,delayed release 20 mg PO DAILY 03/31/21 [History Last Taken 01/16/23] loratadine 10 mg tablet 10 mg PO DAILY 10/25/22 [History Last Taken 01/16/23] tamsulosin 0.4 mg capsule 0.8 mg PO QHS 10/25/22 [History Last Taken 01/15/23] aspirin 81 mg tablet,delayed release (Adult Aspirin Regimen) 81 mg PO DAILY 01/12/23 [History Last Taken 01/16/23] Allergy/AdvReac Type Severity Reaction Status Date / Time amoxicillin [From Augmentin] AdvReac gi upset Verified 01/16/23 10:08 cerivastatin [From Baycol] AdvReac unknown Verified 01/16/23 10:08 clavulanic acid AdvReac gi upset Verified 01/16/23 10:08 [From Augmentin] fluoxetine AdvReac lethargic Verified 01/16/23 10:08 sertraline AdvReac gi upset Verified 01/16/23 10:08 Family History Mother Heart disease Atrial flutter/atrial fib Father CAD (coronary artery disease), Onset Age: 83 CABG Social History Smoking Status: Never smoker alcohol intake: current alcohol intake frequency: a few times a week substance use type: does not use caffeine: Yes Type: carbonated beverages Number of servings: 2 and coffee Number of servings: 2 Risk Stratification Age >/= 65: No DENVER Risk Stratification Score: 1 DENVER % Risk: 5% Risk Lab / Micro Data 01/16/23 10:30 01/16/23 10:30
--- NOTE | 2023-01-16 16:34 | HP.PCM.HOS_ITS ---
HPI - General General Date of Admission: 01/16/23 Date of Service: 01/16/23 Chief Complaint: Chest pain HPI Narrative Tavon Orosco is a 62-year-old male with history significant for hypertension, hyperlipidemia, paroxysmal atrial fibrillation not on anticoagulation and GERD who presented to [facility] ED on 01/16 with chest pain. Patient seen at bedside in the ED. Was laying comfortably in bed, conversing normally, and in no acute distress. States that he began to have chest pain about 1.5 to 2 weeks ago. Pain started in his left arm and worked its way into the left side of his chest. He follows with Dr. Dai (cardiology) for paroxysmal atrial fibrillation which was diagnosed in April of last year. He notably had a stress test done last year that was negative. States that his girlfriend is a nurse, and she convinced him that he needed to be seen in the office for this chest pain. Presented to Dr. Dai's office this morning and had EKG done that showed nonspecific T wave changes. He was then sent to the ED for further evaluation. Patient has been taking his home medications as prescribed. Denies any shortness of breath. He denies any palpitations. No other acute concerns at this time. [facility] Medical History Anxiety BPH (benign prostatic hyperplasia) Erectile dysfunction Essential hypertension GERD (gastroesophageal reflux disease) Hyperlipidemia IBS (irritable bowel syndrome) Malignant melanoma of left shoulder Paroxysmal atrial fibrillation Personal history of malignant melanoma Home Medications atorvastatin 10 mg tablet 10 mg PO QHS 03/31/21 [History Last Taken 01/15/23] bupropion HCl 300 mg 24 hr tablet, extended release 300 mg PO DAILY 03/31/21 [History Last Taken 01/16/23] metoprolol tartrate 25 mg tablet 75 mg PO BID 03/31/21 [History Last Taken 01/16/23] omeprazole 20 mg capsule,delayed release 20 mg PO DAILY 03/31/21 [History Last Taken 01/16/23] loratadine 10 mg tablet 10 mg PO DAILY 10/25/22 [History Last Taken 01/16/23] tamsulosin 0.4 mg capsule 0.8 mg PO QHS 10/25/22 [History Last Taken 01/15/23] aspirin 81 mg tablet,delayed release (Adult Aspirin Regimen) 81 mg PO DAILY 01/12/23 [History Last Taken 01/16/23] Allergy/AdvReac Type Severity Reaction Status Date / Time amoxicillin [From Augmentin] AdvReac gi upset Verified 01/16/23 10:08 cerivastatin [From Baycol] AdvReac unknown Verified 01/16/23 10:08 clavulanic acid AdvReac gi upset Verified 01/16/23 10:08 [From Augmentin] fluoxetine AdvReac lethargic Verified 01/16/23 10:08 sertraline AdvReac gi upset Verified 01/16/23 10:08 Family History Mother Heart disease Atrial flutter/atrial fib Father CAD (coronary artery disease), Onset Age: 83 CABG Social History Smoking Status: Never smoker alcohol intake: current alcohol intake frequency: a few times a week substance use type: does not use caffeine: Yes Type: carbonated beverages Number of servings: 2 and coffee Number of servings: 2 ROS Constitutional Constitutional: Denies chills, fatigue, fever(s) or malaise Eyes Eyes: Denies change in vision Cardiovascular Cardiovascular: Reports chest pain; Denies dyspnea on exertion, edema, lightheadedness, orthopnea, palpitations, rapid heart rate or syncope Respiratory/Chest Respiratory/Chest: Denies cough, productive cough or shortness of breath at rest Gastrointestinal Gastrointestinal: Denies abdominal pain Vital Signs Vital Signs Vital Signs: 01/16/23 10:06 01/16/23 10:08 01/16/23 10:18 Temperature 97.1 F L Temperature Source Temporal Pulse Rate 83 Pulse Strength Respiratory Rate 18 Respiratory Effort Normal Blood Pressure 131/103 H Blood Pressure Mean 112 Pulse Ox 96 Oxygen Delivery Method Room Air Room Air 01/16/23 12:16 01/16/23 12:16 01/16/23 13:00 Temperature 97.8 F Temperature Source Temporal Pulse Rate 89 78 64 Pulse Strength Respiratory Rate 14 14 14 Respiratory Effort Blood Pressure 145/76 H 145/79 H 134/78 H Blood Pressure Mean 99 101 96 Pulse Ox 98 98 97 Oxygen Delivery Method Room Air Room Air Room Air 08/14/23 12:50 Temperature Temperature Source Pulse Rate Pulse Strength Normal (2+) Respiratory Rate Respiratory Effort Blood Pressure Blood Pressure Mean Pulse Ox Oxygen Delivery Method Weight Weight: 97.4 kg Body Mass Index (BMI) 29.1 Physical Exam Const alert, oriented x3, no apparent distress, average body habitus, healthy appearing and well nourished Constitutional Narrative: Pleasant male, resting comfortably in bed, conversing normally, no acute distre ss. General Appearance: cooperative, comfortable, well kempt and well developed HEENT normocephalic, head/scalp atraumatic, hearing grossly normal bilaterally, nasal mucous membranes and turbinates normal and moist oral mucous membranes Eyes PERRL, EOMs intact bilaterally and conjunctivae normal Neck full ROM, no lymphadenopathy and supple Lymph Lymphatic: no lymphadenopathy noted Chest inspection of chest normal Resp normal respiratory effort, normal air movement, no use of accessory muscles and clear to auscultation bilaterally Cardio no murmurs and peripheral pulses 2+ throughout Cardio Narrative: A-fib noted, rate controlled. GI normal to inspection, nondistended, normoactive bowel sounds, soft to palpation, non-tender and non-distended Back/Spine normal ROM Extremity normal to inspection, full ROM and no pedal edema Skin no rashes or lesions noted Psych mental status grossly normal Results Lab / Micro Data 01/16/23 10:30 01/16/23 10:30 Labs: Laboratory Results - last 24 hr 01/16/23 10:30: WBC 6.9, RBC 5.45, Hgb 17.1 H, Hct 51.0, MCV 93.6, MCH 31.4, MCHC 33.5, RDW Std Deviation 43.3, RDW Coeff of Praveena 12.6, Plt Count 96 L, MPV 10.7, Immature Gran % (Auto) 0.400, Neut % (Auto) 67.8, Lymph % (Auto) 19.9, Cecil % (Auto) 9.6, Eos % (Auto) 1.6, Baso % (Auto) 0.7, Absolute Neuts (auto) 4.7, Absolute Lymphs (auto) 1.37, Nucleated RBC % 0, Sodium 138, Potassium 4.2, Chloride 108 H, Carbon Dioxide 27.0, Anion Gap 3 L, BUN 22 H, Creatinine 1.41 H, Est GFR (MDRD) Af Amer 65, Est GFR (MDRD) Non-Af 54 L, BUN/Creatinine Ratio 15.6, Glucose 117 H, Calcium 8.9, Troponin I High Sens 4 01/16/23 12:44: Troponin I High Sens 4 Radiology Impression Chest X-Ray 01/16/23 10:30 IMPRESSION: No acute abnormality is seen. Electronically Signed: Joseph Garcia MD at 10:56 EDT , Assessment & Plan Assessment/Plan (1) Chest pain: PLAN: Plan Patient is a 62-year-old male with history significant for hypertension, hyperlipidemia, paroxysmal atrial fibrillation not on anticoagulation and GERD who presented to [facility] ED on 01/16 with chest pain. 1. Chest pain Unclear if cardiac in nature at this time. May be musculoskeletal in nature but no clear inciting event noted by patient. Given patient's risk factors, does warrant further work-up. EKG in the ED shows A-fib with rate of 103, right axis deviation (possibly secondary to RVH or posterior fascicular block), nonspecific ST changes. Troponin negative. Basic labs fairly benign. Chest x-ray normal. Patient notably had a stress test done in April 2021 that was normal. Echo at that time showed an EF of 60%, stage I diastolic dysfunction, otherwise normal. Was given 325 mg of aspirin in the ED. Not started on a heparin drip or Plavix. -We will admit to observation with telemetry. We will plan for stress test tomorrow, n.p.o. at midnight. Continue home baby aspirin, statin, Lopressor. A1c, lipid panel and TSH ordered for risk stratification. 2. Mild JULIANNE -Likely secondary to mild dehydration. Creatinine 1.41 on admit, baseline appears to be around 0.9-1. Given 1 L of IV fluids in the ED. We will recheck BMP tomorrow morning. 3. Paroxysmal A-fib Diagnosed in April 2022. Follows with Dr. Dai's office. Has been taking a baby aspirin daily but has not been on anticoagulation. [id number] score of 1 (hypertension). EKG on admission shows A-fib with rate of 103 as noted above. -Continue home Lopressor 75 mg twice daily. Can discuss need for anticoagulation prior to discharge. 4. Thrombocytopenia Unclear etiology. Platelets 96 on admission. No previously known baseline. -We will recheck CBC tomorrow morning. 5. Hypertension ? Continue home Lopressor as above. 6. Hyperlipidemia ?Continue home atorvastatin 10 mg daily. May increase dose depending on stress test findings and lipid profile findings. 7. GERD ? Continue home omeprazole. DVT prophylaxis: Lovenox CODE STATUS: Full code, verified Expected disposition: Home. If stress test tomorrow is nonacute, will likely be okay for discharge home tomorrow afternoon. Total clinical time spent by myself addressing the patient's medical issues, reviewing all of the data, and collaborating with patient's care team: 55 minutes. Charges/Coding Visit Charges Inpatient E&M: 90065 Init Hosp L2
[2023-01-16 18:48] LABS: Cholesterol 174 mg/dL (200); Hemoglobin A1c 5.7 % (3.8-5.6); High Density Lipoprotein 33 mg/dL; Thyroid Stim Hormone (TSH) 1.55 uIU/mL (0.358-3.74); Triglycerides 116 mg/dL; Very Low Density Lipoprotein 23 mg/dL (5-40)
--- NOTE | 2023-01-16 20:42 | EKG12_ITS ---
Test Reason : CP Blood Pressure : / mmHG Vent. Rate : 092 BPM Atrial Rate : 000 BPM P-R Int : 000 ms QRS Dur : 092 ms QT Int : 336 ms P-R-T Axes : 000 -17 030 degrees QTc Int : 415 ms Atrial fibrillation Abnormal ECG When compared with ECG of 16-JAN-2023 10:14, MANUAL COMPARISON REQUIRED, DATA IS UNCONFIRMED Confirmed by VIGNESH VILLEGAS ([id number]), features editor ERLIN SUAREZ ([id number]) on 01/24/2023 9:49:37 AM Referred By: Confirmed By:VIGNESH VILLEGAS
[2023-01-16] MEDS: Atorvastatin Calcium 10 MG Tablet PO (21:43)
[2023-01-16] MEDS: Tamsulosin HCl 0.4 MG Capsule 0.8 MG PO (21:44)
[2023-01-16] MEDS: Metoprolol Tartrate 50 MG Tablet 75 MG PO (21:44)
[2023-01-16] MEDS: Nitroglycerin (INPATIENT USE) 0.4 MG TAB.SUBL SL ×2 (21:59→22:13)
[2023-01-16] MEDS: Acetaminophen 325 MG Tablet 650 MG PO (22:12)
[2023-01-16 22:14] LABS: Troponin-I HS 4 pg/mL (3.0-78.0)
[2023-01-17 01:31] VITALS: BP 112/72; PULSE 80; RESP 16; TEMP 36.5; O2SAT 96
--- NOTE | 2023-01-17 05:55 | EKG12_ITS ---
Test Reason : AM EKG Blood Pressure : / mmHG Vent. Rate : 083 BPM Atrial Rate : 000 BPM P-R Int : 000 ms QRS Dur : 092 ms QT Int : 376 ms P-R-T Axes : 000 -13 002 degrees QTc Int : 441 ms Atrial fibrillation Abnormal ECG When compared with ECG of 16-JAN-2023 20:52, MANUAL COMPARISON REQUIRED, DATA IS UNCONFIRMED Confirmed by VIGNESH VILLEGAS ([id number]), news video editor ERLIN SUAREZ ([id number]) on 01/24/2023 9:49:03 AM Referred By: Confirmed By:VIGNSEH VILLEGAS
[2023-01-17 06:00] VITALS: BP 122/89; PULSE 74; RESP 16; TEMP 36.2; O2SAT 96
[2023-01-17] MEDS: Aspirin E.C. 81 MG Tablet PO (06:10)
--- NOTE | 2023-01-17 07:30 | ECHOD_ITS ---
Reason For Study: CHEST PAIN Procedure This was a 2D Doppler, Color Flow transthoracic echocardiogram. Exam performed in department. Left Ventricle Normal LV size. Left ventricular systolic function is normal. The estimated ejection fraction is 60 %. Unable to assess diastolic dysfunction due to arrhythmia. No regional wall motion abnormalities noted. Right Ventricle Normal RV size. Normal systolic function. Atria Normal left atrium. Normal right atrium. Mitral Valve The mitral valve is structurally normal. No prolapse or stenosis seen. Trivial mitral valve insufficiency. Tricuspid Valve Normal tricuspid valve. Trivial tricuspid valve insufficiency. Right ventricular systolic pressure estimated to be 29 mmHg. Aortic Valve Trisinus/trileaflet aortic valve. Pulmonic Valve The pulmonic valve is not well visualized. Trivial pulmonic valve insufficiency. Great Vessels Normal aortic root. Pericardium/Pleural No pericardial effusion. MMode/2D Measurements & Calculations LVIDd: 4.8 cm IVSd: 1.1 cm Ao root diam: 3.7 cm LVIDs: 3.1 cm LVPWd: 1.4 cm RVDd: 3.1 cm FS: 35.9 % LAV(MOD-bp): 65.6 ml LVAd ap4: 27.8 cm2 SV(MOD-sp4): 48.9 ml LAV(MOD-bp) Indexed: 30.2 ml/m2 LVLd ap4: 8.0 cm LAV(MOD-sp2): 54.1 ml EDV(MOD-sp4): 81.0 ml LAV(MOD-sp4): 73.7 ml EDV(sp4-el): 81.4 ml LVAs ap4: 15.9 cm2 LVLs ap4: 6.9 cm ESV(MOD-sp4): 32.1 ml ESV(sp4-el): 31.3 ml EF(MOD-sp4): 60.3 % EF(sp4-el): 61.6 % SV(sp4-el): 50.1 ml LA A4 area: 23.8 cm2 LA dimension(2D): 4.5 cm RA A4 area: 18.0 cm2 TAPSE: 1.9 cm Doppler Measurements & Calculations MV E max elijah: 64.5 cm/sec MV V2 max: 75.6 cm/sec Ao V2 max: 97.2 cm/sec MV max P.3 mmHg Ao max P.8 mmHg MV V2 mean: 46.8 cm/sec Ao V2 mean: 69.0 cm/sec MV mean P.1 mmHg Ao mean P.2 mmHg MV V2 VTI: 11.7 cm Ao V2 VTI: 17.9 cm AV (velocity ratio): 0.73 LV V1 max: 75.0 cm/sec PA V2 max: 84.1 cm/sec TR max elijah: 256.3 cm/sec LV V1 max P.3 mmHg PA V2 mean: 60.2 cm/sec TR max P.3 mmHg LV V1 mean P.4 mmHg LV V1 mean: 55.5 cm/sec LV V1 VTI: 13.1 cm ECHO/Echo Complete Interpretation Summary Normal LV systolic function The estimated ejection fraction is 60 %. Trivial mitral valve insufficiency. Trivial tricuspid valve insufficiency. Ordering Physician: Shravan Perez Referring Physician: Ankur Acevedo Performed By: Kaela Eaton RCS
[2023-01-17 11:14] VITALS: BP 127/94; PULSE 90; RESP 18; TEMP 36.2; O2SAT 98
[2023-01-17 11:16] VITALS: PULSE 90
[2023-01-17] MEDS: Pantoprazole Sodium 20 MG Tablet PO (11:16)
[2023-01-17] MEDS: Loratadine 10 MG Tablet PO (11:16)
[2023-01-17] MEDS: buPROPion (XL) 300 MG TABLET.XL PO (11:16)
[2023-01-17] MEDS: Metoprolol Tartrate 50 MG Tablet 75 MG PO (11:16)
[2023-01-17 11:29] LABS: Hematocrit 52.7 % (40-54); Hemoglobin 17.2 g/dL (13.0-16.5); Mean Corp Hgb Conc 32.6 g/dL (32-36); Mean Corpuscular Hgb 30.8 pg (27.0-32.0); Mean Corpuscular Volume 94.4 fL (80-94); POSITIVE COUNT YES; Platelet Count 87 K/mm3 (150-450); RBC Distribution Width CV 12.5 % (11.6-14.6); RBC Distribution Width SD 43.1 fl (35.1-43.9); Red Blood Count 5.58 M/mm3 (4.6-6.2); White Blood Count 8.2 K/mm3 (4.4-11.0)
[2023-01-17 11:46] LABS: Scan Indicated on CBC? Y/N NO
[2023-01-17 11:58] LABS: AST(SGOT) 12 U/L (15-37); Alanine Aminotransfer ALT/SGPT 26 U/L (16-61); Albumin, Serum 3.5 g/dL (3.2-5.0); Alkaline Phosphatase 54 U/L (45-117); Bilirubin, Direct 0.16 mg/dL (0.00-0.30); Globulin 3.2 g/dL (2.2-4.2); Protein, Total 6.7 g/dL (6.4-8.2)
--- NOTE | 2023-01-17 12:15 | STRESSREP_ITS ---
Stress Test Report Pharmacologic Lexiscan sestamibi myocardial perfusion stress test. Indication; 62-year-old patient complaining of left shoulder discomfort, patient has underlying atrial fibrillation with controlled ventricular rate Scheduled for Lexiscan sestamibi. To assess for myocardial ischemia as he presented to the ER complaining of symptoms of chest pain Stress protocol: Resting EKG demonstrates atrial fibrillation with controlled ventricular rate 0.4 mg of regadenoson was infused per usual protocol followed by rapid intravenous saline flush injection continuous EKG monitoring was performed. The maximum heart rate attained was 111 bpm which was 71% of maximum predicted heart . Stress EKG showed[, no significant change from the resting EKG, with maximum heart rate of 100 bpm. Arrhythmia: Patient remains in A-fib Symptoms: Patient had no symptoms of chest pain. She has symptoms of a left shoulder discomfort Blood pressure at rest: [142/100 mmHg blood pressure at the end of stress: 142/100 mmHg. Myocardial perfusion protocol. [14 mCi ]of Technetium 99m Sestamibi was injected at rest. [ 0.4 mg ]of Regadenoson was infused per usual protocol peak infusion[44.2 mCi ]of Technetium 99m sestamibi was injected. Stress images were obtained stress and rest images were reconstructed and compared in the short axis vertical and horizontal long axis. Gated images were also obtained Perfusion SPECT analysis: Review of the images demonstrate normal uptake of sestamibi at rest, post stress images demonstrate similar uptake of sestamibi to the resting images, homogeneous tracer uptake With no evidence of reversible myocardial ischemia. Gated SPECT analysis: The gated ejection fraction is [61 %]. Delete that Normal LV wall motion and LV systolic function Conclusion: Negative Lexiscan sestamibi myocardial perfusion study for reversible myocardial ischemia Normal LV wall motion and LV systolic function Patient remains in atrial fibrillation with controlled ventricular rate during the study Sabino Mtz MD,FACC,[facility]
--- NOTE | 2023-01-17 14:09 | DCINST_ITS ---
Discharge Instructions Diet Discharge Diet: No restrictions Activity Discharge Activity: Return to Normal Activity Weight Bearing Status: Full weight bearing Follow Up Care Please Follow Up With: Ankur Acevedo MD When: As needed Test Results: Test results from this visit will be discussed in further detail at your follow- up appointment, if applicable. Pending Tests Upon Discharge: None Discharge Plan Admission Admit Date/Time: 01/16/23 13:03 Primary Reason for Your Visit: Chest pain Attending Provider: Shravan Perez Primary Care Provider: Ankur Acevedo Instructions Additional Instructions / Restrictions: Please start taking Eliquis twice daily for your A-fib. Continue your other home medications as you have been taking. You can use [id number] pain relief medications to help with chest pain relief. Follow-up with your primary care provider as needed. Discharge Orders/Prescriptions Prescriptions: New Eliquis 5 mg tablet 5 mg PO BID 30 Days Qty: 60 0RF Continued metoprolol tartrate 25 mg tablet 75 mg PO BID omeprazole 20 mg capsule,delayed release(DR/EC) 20 mg PO DAILY atorvastatin 10 mg tablet 10 mg PO QHS bupropion HCl 300 mg tablet extended release 24 hr 300 mg PO DAILY tamsulosin 0.4 mg capsule 0.8 mg PO QHS loratadine 10 mg tablet 10 mg PO DAILY aspirin [Adult Aspirin Regimen] 81 mg tablet,delayed release (DR/EC) 81 mg PO DAILY Referrals / Follow Up: Ankur Acevedo MD [Primary Care Provider] - Disposition Disposition (needs filled in before D/C Order can be placed): Home, Self Care
--- NOTE | 2023-01-17 14:13 | PCM.DC.SUM ---
Providers Date of Admission: 01/16/23 Date of Discharge: 01/17/23 Primary Care Physician: Dr. Ankur Acevedo MD Reason For Visit: chest pain Diagnosis Discharge Diagnosis (1) Chest pain: Status: Acute Code(s): R07.9 - Chest pain, unspecified Medications at Discharge Home Medications atorvastatin 10 mg tablet 10 mg PO QHS cholesterol 03/31/21 bupropion HCl 300 mg 24 hr tablet, extended release 300 mg PO DAILY 03/31/21 metoprolol tartrate 25 mg tablet 75 mg PO BID blood pressure 03/31/21 omeprazole 20 mg capsule,delayed release 20 mg PO DAILY reflux 03/31/21 loratadine 10 mg tablet 10 mg PO DAILY allergies 10/25/22 tamsulosin 0.4 mg capsule 0.8 mg PO QHS prostate 10/25/22 aspirin 81 mg tablet,delayed release (Adult Aspirin Regimen) 81 mg PO DAILY heart health 01/12/23 apixaban 5 mg tablet (Eliquis) 5 mg PO BID A-fib 30 days #60 tabs 01/17/23 Hospital Course Operations None Procedures EKG, Stress test, Transthoracic echo and - Summary of Care Provided Minutes Spent on Discharge: 38 Hospital Course: Tavon Orosco is a 62-year-old male with history significant for hypertension, hyperlipidemia, paroxysmal atrial fibrillation not on anticoagulation and GERD who presented to [facility] ED on 01/16 with chest pain. Pain started approximately 1.5 to 2 weeks before presentation. Patient stated that the pain began in his left upper arm and worked its way into the left side of his chest. 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 He was sent into the ED for further evaluation. Patient had a nuclear stress test done here that showed no acute findings. Transthoracic echocardiogram was done and showed an EF of 60% with no significant valvular issues. Cardiology followed, agreed that chest pain was unlikely cardiac in nature. Notably, patient's [id number] score was 1 but patient is turning 63 years old soon and score would bump up to 2. Cardiology recommended that patient start Eliquis. Prescription was sent to patient's pharmacy and he will begin Eliquis on night of discharge. Patient was discharged home in stable condition. Discharge diagnoses: Chest pain, improved JULIANNE, resolved Paroxysmal atrial fibrillation Hypertension Hyperlipidemia GERD Total clinical time spent by myself addressing the patient's discharge needs: 38 minutes. Physical Exam Const alert, oriented x3, no apparent distress, average body habitus, healthy appearing and well nourished Constitutional Narrative: Pleasant male, resting comfortably in bed, conversing normally, no acute distress. General Appearance: cooperative, comfortable, well kempt and well developed HEENT normocephalic, head/scalp atraumatic, hearing grossly normal bilaterally, nasal mucous membranes and turbinates normal and moist oral mucous membranes Eyes PERRL, EOMs intact bilaterally and conjunctivae normal Neck full ROM, no lymphadenopathy and supple Lymph Lymphatic: no lymphadenopathy noted Chest inspection of chest normal Resp normal respiratory effort, normal air movement, no use of accessory muscles and clear to auscultation bilaterally Cardio no murmurs and peripheral pulses 2+ throughout Cardio Narrative: A-fib noted, rate controlled. GI normal to inspection, nondistended, normoactive bowel sounds, soft to palpation, non-tender and non-distended Back/Spine normal ROM Extremity normal to inspection, full ROM and no pedal edema Skin no rashes or lesions noted Psych mental status grossly normal Weight / BMI Weight Weight: 97.4 kg Body Mass Index (BMI) 29.1 ABG / Lab / Microbiology Data 01/17/23 11:20 01/16/23 10:30 Laboratory: Laboratory Results - last 24 hr 01/16/23 10:30: Hemoglobin A1c 5.7 H, Triglycerides 116, Cholesterol 174, LDL Cholesterol 118, VLDL Cholesterol 23, HDL Cholesterol 33 L, TSH 1.55 01/16/23 21:49: Troponin I High Sens 4 01/17/23 11:20: WBC 8.2, RBC 5.58, Hgb 17.2 H, Hct 52.7, MCV 94.4 H, MCH 30.8, MCHC 32.6, RDW Std Deviation 43.1, RDW Coeff of Praveena 12.5, Plt Count 87 L, MPV 11.0, Total Bilirubin 0.60, Direct Bilirubin 0.16, AST 12 L, ALT 26, Alkaline Phosphatase 54, Total Protein 6.7, Albumin 3.5, Globulin 3.2 Radiography Diagnostic Testing: Radiology Impression Echocardiogram 01/17/23 07:30 Interpretation Summary Normal LV systolic function The estimated ejection fraction is 60 %. Trivial mitral valve insufficiency. Trivial tricuspid valve insufficiency. Ordering Physician: Shravan Perez Referring Physician: Ankur Acevedo Performed By: Kaela Eaton RCS D/C Instructions Discharge Diet: No restrictions Weight Bearing Status: Full weight bearing Pending Tests Upon Discharge: None Please Follow Up With: Ankur Acevedo MD When: As needed Meaningful Use Info Meaningful Use Diagnoses (Choose all that apply): None applicable Discharge Plan Admission Admit Date/Time: 01/16/23 13:03 Primary Reason for Your Visit: Chest pain Attending Provider: Shravan ePrez Primary Care Provider: Ankur Acevedo Instructions Additional Instructions / Restrictions: Please start taking Eliquis twice daily for your A-fib. Continue your other home medications as you have been taking. You can use [id number] pain relief medications to help with chest pain relief. Follow-up with your primary care provider as needed. Discharge Orders/Prescriptions Prescriptions: New Eliquis 5 mg tablet 5 mg PO BID 30 Days Qty: 60 0RF Continued metoprolol tartrate 25 mg tablet 75 mg PO BID omeprazole 20 mg capsule,delayed release(DR/EC) 20 mg PO DAILY atorvastatin 10 mg tablet 10 mg PO QHS bupropion HCl 300 mg tablet extended release 24 hr 300 mg PO DAILY tamsulosin 0.4 mg capsule 0.8 mg PO QHS loratadine 10 mg tablet 10 mg PO DAILY aspirin [Adult Aspirin Regimen] 81 mg tablet,delayed release (DR/EC) 81 mg PO DAILY Referrals / Follow Up: Ankur Acevedo MD [Primary Care Provider] - Disposition Disposition (needs filled in before D/C Order can be placed): Home, Self Care Charges/Coding Visit Charges Inpatient E&M: 52409 Disch Hosp >30min
--- NOTE | 2023-01-17 14:33 | CASEMGMT ---
Patient is discharging on [facility]. NEDRA FLORES called Mike Toney to inquire about cost. Patient has copay of $55. NEDRA FLORES provided patient with $10 copay card. Patient had no further questions or concerns at this time.
--- NOTE | 2023-01-17 15:01 | PHA.DC.MC.R ---
Pharmacy [facility] has performed discharge medication reconciliation and counseling for this patient. 1. APIXABAN 5MG PO BID The patient's discharge medication list was reviewed for discrepancies and discrepancies were resolved. The patient was counseled on the following discharge medications and changes in medications for homegoing were reviewed. The Reason for Use, instructions for use, and potential side effects were reviewed for all new medications. The patient's questions regarding all of their medications were answered. The patient was able to verbally demonstrate an understanding of their discharge medications. Patient counseled by pharmacy picking technicianKarlie. Medications at Discharge Home Medications atorvastatin 10 mg tablet 10 mg PO QHS cholesterol 03/31/21 bupropion HCl 300 mg 24 hr tablet, extended release 300 mg PO DAILY 03/31/21 metoprolol tartrate 25 mg tablet 75 mg PO BID blood pressure 03/31/21 omeprazole 20 mg capsule,delayed release 20 mg PO DAILY reflux 03/31/21 loratadine 10 mg tablet 10 mg PO DAILY allergies 10/25/22 tamsulosin 0.4 mg capsule 0.8 mg PO QHS prostate 10/25/22 aspirin 81 mg tablet,delayed release (Adult Aspirin Regimen) 81 mg PO DAILY heart health 01/12/23 apixaban 5 mg tablet (Eliquis) 5 mg PO BID A-fib 30 days #60 tabs 01/17/23
--- NOTE | 2023-01-17 15:29 | PN.CARD_ITS ---
Subjective Subjective Pt seen and examined. Overall doing ok. No CP or arm pain. Not aware of his Afib. Objective Data Vital Signs: Vital Signs Temp Pulse Resp BP Pulse Ox O2 Del Method 97.2 F L 90 18 127/94 H 98 Room Air 01/17/23 11:14 01/17/23 11:16 01/17/23 11:14 01/17/23 11:14 01/17/23 11:14 01/17/23 11:14 Oxygen Delivery Method Room Air Weight: 214 lb 11.684 oz Body Mass Index (BMI) 29.1 Intake & Output: Intake and Output for Last 24 Hours 01/15/23 01/16/23 01/17/23 23:59 23:59 23:59 Intake Total 1000 / 1000 500 / 500 Output Total 2 / 2 Balance 1000 / 1000 498 / 498 Lab / Micro Data 01/17/23 11:20 01/16/23 10:30 Labs: Laboratory Results - last 24 hr 01/16/23 10:30: Hemoglobin A1c 5.7 H, Triglycerides 116, Cholesterol 174, LDL Cholesterol 118, VLDL Cholesterol 23, HDL Cholesterol 33 L, TSH 1.55 01/16/23 21:49: Troponin I High Sens 4 01/17/23 11:20: WBC 8.2, RBC 5.58, Hgb 17.2 H, Hct 52.7, MCV 94.4 H, MCH 30.8, MCHC 32.6, RDW Std Deviation 43.1, RDW Coeff of Praveena 12.5, Plt Count 87 L, MPV 11.0, Total Bilirubin 0.60, Direct Bilirubin 0.16, AST 12 L, ALT 26, Alkaline Phosphatase 54, Total Protein 6.7, Albumin 3.5, Globulin 3.2 Cardiology Labs/Tests 01/16/23 10:30: Hemoglobin A1c 5.7 H, Triglycerides 116, Cholesterol 174, LDL Cholesterol 118, VLDL Cholesterol 23, HDL Cholesterol 33 L 01/17/23 11:20: WBC 8.2, RBC 5.58, Hgb 17.2 H, Hct 52.7, MCV 94.4 H, MCH 30.8, MCHC 32.6, Plt Count 87 L, MPV 11.0, Total Bilirubin 0.60, Direct Bilirubin 0.16 Radiography Diagnostic Testing: Radiology Impression Echocardiogram 01/17/23 07:30 Interpretation Summary Normal LV systolic function The estimated ejection fraction is 60 %. Trivial mitral valve insufficiency. Trivial tricuspid valve insufficiency. Ordering Physician: Shravan Perez Referring Physician: Ankur Acevedo Performed By: Kaela Eaton RCS Stress test : Negative Lexiscan sestamibi myocardial perfusion study for reversible myocardial ischemia Normal LV wall motion and LV systolic function Patient remains in atrial fibrillation with controlled ventricular rate during the study Physical Exam Const alert, oriented x3, no apparent distress and healthy appearing HEENT normocephalic, head/scalp atraumatic, hearing grossly normal bilaterally, external ears normal, external nose normal and moist oral mucous membranes Eyes PERRL, EOMs intact bilaterally, conjunctivae normal and no scleral icterus Neck no lymphadenopathy, supple and no JVD Resp normal respiratory effort and clear to auscultation bilaterally Cardio regular rate, S1 normal heart sound, S2 normal heart sound, no murmurs, no rub, no gallops, no clicks, no JVD and peripheral pulses 2+ throughout Rhythm: abnormal rhythm irregularly irregular GI normal to inspection, nondistended, normoactive bowel sounds, soft to palpation, non-tender and non-distended Extremity normal to inspection, normal capillary refill, no clubbing, cyanosis or edema and no pedal edema Neuro oriented x3, CN's II-XII intact bilaterally, moves all extremities and no focal motor deficits Psych cooperative and affect normal Assessment & Plan Assessment/Plan (1) Chest pain: (2) Paroxysmal atrial fibrillation: (3) Essential hypertension: (4) Hyperlipidemia: PLAN: Plan * Patient's stress test and echocardiogram are normal. If he continues to have chest discomfort would consider a coronary calcium score on an outpatient basis. * Since patient will be 63 in a few weeks, he does have a Octavio Vascor at that time of 2. Would like to start patient on Eliquis. His rate is controlled on his current rate limiting medication. On an outpatient basis we will then consider a cardioversion after he has been anticoagulated for 30 days. Can also consider an antiarrhythmic if cardioversion is not successful. Can also consider an EP consult for possible ablation.
== END 2023-01-17 14:11 | disposition home or self-care (01) ==
LOC: ED 12:37 → PCU 13:12
PROVIDERS: Admitting Provider Hospitalist; Emergency Provider Emergency Medicine; PCP Family Medicine; Visit Provider Hospitalist
DX: I48.0 Paroxysmal atrial fibrillation (principal); N17.9 Acute kidney failure, unspecified; D69.6 Thrombocytopenia, unspecified; Z79.82 Long term (current) use of aspirin; M79.602 Pain in left arm; K21.9 Gastro-esophageal reflux disease without esophagitis; I10 Essential (primary) hypertension; M25.512 Pain in left shoulder; E78.5 Hyperlipidemia, unspecified; N40.0 Benign prostatic hyperplasia without lower urinary tract symptoms; Z79.899 Other long term (current) drug therapy; R07.89 Other chest pain
CPT/HCPCS: 36415; 71045; 78452; 80048; 80061; 80076; 83036; 84443; 84484; 85025; 85027; 93005; 93017; 93306; 96360; 96361; 99221; 99285; A9500; J7030; A4216; G0378; J2785

== ENCOUNTER → 2023-01-26 | Outpatient (CLI) | payer BC, SELFPAY | END | disposition home or self-care (01) | LOC: PSN 14:03 | PROVIDERS: PCP Family Medicine; Referring Provider Physician Assistant Medical; Visit Provider Physician Assistant Medical | DX: I48.0 Paroxysmal atrial fibrillation (principal); R00.2 Palpitations; I10 Essential (primary) hypertension | CPT/HCPCS: 93225; 93226 ==

== ENCOUNTER 2023-02-10 07:03 | Outpatient (CLI) | payer MEDICARE, OTHER, SELFPAY | END 2023-02-10 23:59 | disposition home or self-care (01) | PROVIDERS: PCP Family Medicine; Referring Provider Physician Assistant Medical; Visit Provider Physician Assistant Medical | DX: I48.0 Paroxysmal atrial fibrillation (principal); R00.2 Palpitations; I10 Essential (primary) hypertension | CPT/HCPCS: 93225; 93226 ==

== ENCOUNTER → 2023-02-17 | Outpatient (CLI) | payer MEDICARE, OTHER, SELFPAY ==
[2023-02-17 11:33] LABS: Anion Gap 2 (5-15); BUN 21 mg/dL (7-18); BUN/Creat Ratio 17.1 RATIO (10-20); Calcium,Total 8.6 mg/dL (8.5-10.1); Chloride 111 mmol/L (98-107); Creatinine, Serum 1.23 mg/dL (0.70-1.30); EST Glomerular Filtration Rate 63 mL/min (>60); Est Glom Filt Rate - Afr Amer 76 mL/min (>60); Glucose 109 mg/dL (74-106); Sodium Level 140 mmol/L (136-145)
== END | disposition home or self-care (01) ==
LOC: LAB 10:34
PROVIDERS: PCP Family Medicine; Referring Provider Physician Assistant Medical; Visit Provider Physician Assistant Medical
DX: I48.0 Paroxysmal atrial fibrillation (principal); E78.5 Hyperlipidemia, unspecified
CPT/HCPCS: 36415; 80048

== ENCOUNTER 2023-03-14 07:55 | Day surgery (SDC) | payer MEDICARE, OTHER, SELFPAY ==
[2023-03-13 07:54] VITALS: BMI 29.2
--- NOTE | 2023-03-14 10:30 | PCM.OP.PRO ---
Procedure Report Date of Procedure: 03/14/23 CONSCIOUS SEDATION REPORT DATE OF SERVICE: March 14, 2023 BRIEF HISTORY OF PRESENT ILLNESS: The patient is a 63-year-old male who presented to [facility] for elective outpatient cardioversion due to underlying atrial fibrillation. The patient has never previously undergone a cardioversion. He denied a history of COPD or asthma. The patient was recently diagnosed with obstructive sleep apnea and is currently admits to being set up for PAP therapy. The patient is systemically anticoagulated on Eliquis. His last surface echocardiogram demonstrated an ejection fraction of approximately 60%. PHYSICAL EXAMINATION: VITAL SIGNS: Reviewed and were acceptable. GENERAL: The patient is a male, in no apparent distress, speaking in full sentences. HEENT: Normocephalic, atraumatic. Mucous membranes are moist and pink. Good mouth opening noted. Trachea is midline. Good neck mobility. CHEST: S1, S2 irregularly irregular. No murmurs, rubs or gallops were noted. LUNGS: Clear to auscultation bilaterally without appreciable wheezes, rales or rhonchi. ABDOMEN: Soft, nontender, nondistended. Positive bowel sounds. EXTREMITIES: There is no clubbing, cyanosis or edema. ASA Class: II DESCRIPTION OF PROCEDURE: After confirmation of informed consent, the patient's anesthesia plan was reviewed in detail. Propofol was chosen. Risks and benefits were reviewed and the patient agreed to proceed. At 0940, the patient was given 40 mg of propofol. The patient achieved an appropriate level of sedation and was given a 200 joule synchronized cardioversion by Dr. Dai at the bedside. This was successful in achieving normal sinus rhythm. The patient was monitored until 0953, at which time he reached his baseline mental status and function. The patient tolerated the procedure well. COMPLICATIONS: None ESTIMATED BLOOD LOSS: None RECOMMENDATIONS: Okay to recover in usual fashion. Procedures Pulmonary 9xxxx: [id number] Con Sedation
--- NOTE | 2023-03-14 11:22 | PCM.OP.PRO ---
Procedure Report Date of Procedure: 03/14/23 DC cardioversion. 63-year-old man with a history of atrial fibrillation. Patient has been on anticoagulation uninterrupted for a few weeks. The patient was brought to cardiac catheterization lab in the postabsorptive nonsedated state. Patient was seen by Dr. Hamilton of the critical care division. Informed consent was obtained. Anterior-posterior pads were applied. The patient was administered 40 mg of intravenous propofol. 200 J of synchronized DC cardioversion energy were applied with prompt reversal to sinus rhythm. Patient tolerated the procedure well. Conclusion: Successful DC cardioversion from atrial fibrillation to sinus rhythm. Reduce metoprolol to 25 mg twice a day.
== END 2023-03-14 10:45 | disposition home or self-care (01) ==
LOC: CLSP 07:57
PROVIDERS: PCP Family Medicine; Referring Provider Internal Medicine Cardiovascular Disease; Visit Provider Internal Medicine Cardiovascular Disease
DX: I48.0 Paroxysmal atrial fibrillation (principal); E78.5 Hyperlipidemia, unspecified; I10 Essential (primary) hypertension; Z79.899 Other long term (current) drug therapy; Z79.01 Long term (current) use of anticoagulants; G47.33 Obstructive sleep apnea (adult) (pediatric)
CPT/HCPCS: 92960; 93005; J7040

== ENCOUNTER → 2023-04-25 | Outpatient (CLI) | payer MEDICARE, OTHER, SELFPAY ==
[2023-04-25 11:00] LABS: Anion Gap 5 (5-15); BUN 25 mg/dL (7-18); BUN/Creat Ratio 18.5 RATIO (10-20); Calcium,Total 8.7 mg/dL (8.5-10.1); Chloride 107 mmol/L (98-107); Creatinine, Serum 1.35 mg/dL (0.70-1.30); EST Glomerular Filtration Rate 56 mL/min (>60); Est Glom Filt Rate - Afr Amer 68 mL/min (>60); Glucose 113 mg/dL (74-106); Potassium 4.2 mmol/L (3.5-5.1); Sodium Level 139 mmol/L (136-145)
== END | disposition home or self-care (01) ==
LOC: LAB 09:51
PROVIDERS: PCP Family Medicine; Visit Provider Physician Assistant Medical
DX: I48.19 Other persistent atrial fibrillation (principal)
CPT/HCPCS: 36415; 80048

== ENCOUNTER 2023-05-09 11:03 | Day surgery (SDC) | payer MEDICARE, OTHER, SELFPAY ==
[2023-05-08 12:42] VITALS: BMI 29.2
--- NOTE | 2023-05-09 12:28 | PCM.OP.PRO ---
Procedure Report Date of Procedure: 05/09/23 Synchronized cardioversion CONSCIOUS SEDATION REPORT BRIEF HISTORY OF PRESENT ILLNESS: The patient is a 63-year-old [ male] who presented to [facility] for an elective outpatient cardioversion due to underlying atrial fibrillation. The patient reports no PO intake since midnight, but is currently therapeutic on anticoagulation. The patient has a history of [obstructive sleep apnea and is compliant with therapy]. The patient reports [no] history of smoking and COPD. The patient denies any recent constitutional symptoms such as fevers, chills, nausea or vomiting. The patient denies previous applicable anesthetic complications. PHYSICAL EXAMINATION: VITAL SIGNS: Reviewed and were acceptable. GENERAL: The patient is a [female male], in no apparent distress, speaking in full sentences. HEENT: Normocephalic, atraumatic. Mucous membranes are moist and pink. Good mouth opening noted. Trachea is midline. Good neck mobility. MP [II] CHEST: S1, S2 irregularly irregular. No murmurs, rubs or gallops were noted. LUNGS: Clear to auscultation bilaterally without appreciable wheezes, rales or rhonchi. ABDOMEN: Soft, nontender, nondistended. Positive bowel sounds. EXTREMITIES: There is no clubbing, cyanosis or edema. ASA Class: II DESCRIPTION OF PROCEDURE: After confirmation of informed consent, the patient's anesthesia plan was reviewed in detail. [Propofol] was chosen. Risks and benefits were reviewed and the patient agreed to proceed. At [12:18], the patient was given [40 mg of propofol]. [The patient required a total of 60 mg of][propofol throughout the procedure to achieve appropriate sedation. The patient achieved an appropriate level of sedation and received 1 attempt[s] synchronized cardioversion, at [200 J respectively] by Dr. Dai at the bedside. This was successful in achieving normal sinus rhythm. The patient was monitored until [12:31], at which time the patient reached their baseline mental status and function. The patient tolerated the procedure well. COMPLICATIONS: None ESTIMATED BLOOD LOSS: None RECOMMENDATIONS: Okay to recover in usual fashion.
--- NOTE | 2023-05-09 12:33 | PCM.OP.PRO ---
Procedure Report Date of Procedure: 05/09/23 DC cardioversion 63-year-old man with a history of atrial fibrillation. The patient was brought to the cardiac catheterization lab in the postabsorptive nonsedated state. Informed consent was obtained. The patient was seen by Dr. Montalvo of the critical care division. Anterior-posterior pads were applied. The patient was administered 60 mg of intravenous propofol. 200 J of synchronized biphasic DC cardioversion energy were applied with prompt reversal to sinus rhythm. This was confirmed by EKG. Conclusion: Successful DC cardioversion from atrial fibrillation to sinus rhythm. Continue as per office protocol.
== END 2023-05-09 13:30 | disposition home or self-care (01) ==
LOC: CLSP 11:05
PROVIDERS: PCP Family Medicine; Referring Provider Internal Medicine Cardiovascular Disease; Visit Provider Internal Medicine Cardiovascular Disease
DX: I48.0 Paroxysmal atrial fibrillation (principal); I48.19 Other persistent atrial fibrillation; I10 Essential (primary) hypertension; E78.5 Hyperlipidemia, unspecified; Z79.01 Long term (current) use of anticoagulants
CPT/HCPCS: 92960; 93005; J7040

== ENCOUNTER 2023-06-16 08:49 | Emergency (ER) | payer MEDICARE, OTHER, SELFPAY ==
[2023-06-16 08:50] VITALS: BP 170/92; PULSE 82; RESP 16; TEMP 36.6; O2SAT 98; BMI 30.2
--- NOTE | 2023-06-16 09:08 | EKG12_ITS ---
Test Reason : CP Blood Pressure : / mmHG Vent. Rate : 078 BPM Atrial Rate : 078 BPM P-R Int : 212 ms QRS Dur : 114 ms QT Int : 386 ms P-R-T Axes : 049 -26 023 degrees QTc Int : 440 ms Sinus rhythm with 1st degree A-V block Nonspecific T wave abnormality Abnormal ECG Confirmed by CHELSEY VILLAREAL, MYLA ([id number]), editor house organ ERLIN SUAREZ ([id number]) on 06/19/2023 6:38:08 AM Referred By: Confirmed By:MYLA BARBOSA MD
--- NOTE | 2023-06-16 09:08 | EX.ED.DYSGE1 ---
HPI History of Present Illness Chief Complaint: Hypertension Detail of Chief Complaint: Dizziness, which patient defines as lightheaded Informant: patient Onset/Context/Timing Onset: Weeks (1) Context: Sudden Onset Timing: Intermittent Quality: Upon rising from supine position or sitting to upright position Location: Intermittent x 1 week Current Severity: Mild Maximum Severity: Severe Worsened by: Upright position Relieved by: Gets better when he is supine Associated Symptoms Associated Symptoms: Nausea Narrative Narrative: Patient is a 63-year-old male with tree of hypertension, hypercholesterolemia, GERD who was recently placed on Eliquis for atrial fibrillation. He underwent cardioversion several weeks ago. He sees Dr. Dai. He has also had intermittent left-sided chest pain for over a year with no known etiology. He was sent from his primary care doctor's office because he did not look well. Upon arising from sleep today he became lightheaded. He did not have spinning of the room or himself. He denied double vision, blurred vision or loss of vision. He denied trouble with speech or swallowing. He denied paresthesia, anesthesia or motor weakness. He denied problems with coordination or balance. He reported black stool. He denies chest pain, dyspnea, dyspnea on exertion, PND or orthopnea. He denies cough. He denies decreased hearing or ringing in his ears. Prior similar symptoms: No Recent Illness/Hospitalization: Yes [facility] Medical History Anxiety BPH (benign prostatic hyperplasia) Erectile dysfunction Essential hypertension GERD (gastroesophageal reflux disease) Hyperlipidemia IBS (irritable bowel syndrome) Malignant melanoma of left shoulder Paroxysmal atrial fibrillation Persistent atrial fibrillation Personal history of malignant melanoma Home Medications atorvastatin 10 mg tablet 10 mg PO QHS cholesterol 03/31/21 [History Last Taken 01/15/23] bupropion HCl 300 mg 24 hr tablet, extended release 300 mg PO DAILY 03/31/21 [History Last Taken 05/09/23] omeprazole 20 mg capsule,delayed release 20 mg PO DAILY reflux 03/31/21 [History Last Taken 05/09/23] loratadine 10 mg tablet 10 mg PO DAILY allergies 10/25/22 [History Last Taken 05/09/23] tamsulosin 0.4 mg capsule 0.8 mg PO QHS prostate 10/25/22 [History Last Taken 01/15/23] apixaban 5 mg tablet (Eliquis) 5 mg PO BID A-fib #180 tabs 02/17/23 [Rx Last Taken 05/09/23] cholecalciferol (vitamin D3) 50 mcg (2,000 unit) capsule 50 mcg PO DAILY 02/17/23 [History Last Taken 05/09/23] dicyclomine 20 mg tablet 40 mg PO BID 02/17/23 [History Last Taken 05/09/23] flecainide 100 mg tablet 100 mg PO Q12H #60 tabs 03/22/23 [Rx Last Taken 05/09/23] diltiazem HCl 180 mg capsule,24 hr,extended release 180 mg PO DAILY #90 caps 06/12/23 [Rx Last Taken Unknown] losartan 25 mg tablet 25 mg PO DAILY 06/12/23 [History Last Taken Unknown] Allergy/AdvReac Type Severity Reaction Status Date / Time amoxicillin [From Augmentin] AdvReac gi upset Verified 06/16/23 08:52 cerivastatin [From Baycol] AdvReac unknown Verified 06/16/23 08:52 clavulanic acid AdvReac gi upset Verified 06/16/23 08:52 [From Augmentin] fluoxetine AdvReac lethargic Verified 06/16/23 08:52 sertraline AdvReac gi upset Verified 06/16/23 08:52 Family History Mother Heart disease Atrial flutter/atrial fib Father CAD (coronary artery disease), Onset Age: 83 CABG Surgical History History of cardioversion (05/09/23) Social History Smoking Status: Never smoker alcohol intake: current alcohol intake frequency: a few times a week substance use type: does not use caffeine: Yes Type: carbonated beverages Number of servings: 2 and coffee Number of servings: 2 ROS ROS ED Constitutional Constitutional ED: Denies chills, fever(s), subjective, sweats or weight loss Eyes Eyes: Denies blurry vision, change in vision or diplopia ENT ENT ED: Denies ear pain or rhinorrhea Cardiovascular Cardiovascular: Denies chest pain, orthopnea, palpitations, paroxysmal nocturnal dyspnea or racing heartbeat Respiratory/Chest Respiratory/Chest: Denies cough, dyspnea, dyspnea on exertion, orthopnea or paroxysmal nocturnal dyspnea Gastrointestinal Gastrointestinal: Reports nausea and other Details: Reports feeling slightly distended and uncomfortable. ; Denies abdominal pain, melena or vomiting Musculoskeletal Musculoskeletal: Denies arthralgias, back pain or myalgias Integumentary Denies rash Neurologic Neurologic: Reports headache(s) and other Details: He reports pain left temporal region. Psychiatric Psychiatric: Denies anxiety or depression Endocrine Endocrinology: Reports cold intolerance and heat intolerance Hematologic/Lymphatic Hematologic/Lymphatic: Reports systems reviewed and no addt'l complaints, except as documented EXAM Physical Exam Const Vital Signs: 06/16/23 08:50 06/16/23 09:36 06/16/23 09:46 Temperature 97.9 F Temperature Source Temporal Pulse Rate 82 Pulse Rate [Lying] 76 Pulse Rate [Sitting (for 1 minute prior to obtaining)] 77 Pulse Rate [Standing (for 1 minute prior to obtaining)] 81 Respiratory Rate 16 Respiratory Pattern Normal Blood Pressure 170/92 H Blood Pressure [Lying] 145/78 H Blood Pressure [Sitting (for 1 minute prior to obtaining)] 138/83 H Blood Pressure [Standing (for 1 minute prior to obtaining)] 142/84 H Blood Pressure Mean 118 Blood Pressure Mean [Lying] 100 Blood Pressure Mean [Sitting (for 1 minute prior to obtaining)] 101 Blood Pressure Mean [Standing (for 1 minute prior to obtaining)] 103 Pulse Ox 98 Oxygen Delivery Method Room Air 06/16/23 11:00 Temperature Temperature Source Pulse Rate 67 Pulse Rate [Lying] Pulse Rate [Sitting (for 1 minute prior to obtaining)] Pulse Rate [Standing (for 1 minute prior to obtaining)] Respiratory Rate 18 Respiratory Pattern Blood Pressure 127/75 H Blood Pressure [Lying] Blood Pressure [Sitting (for 1 minute prior to obtaining)] Blood Pressure [Standing (for 1 minute prior to obtaining)] Blood Pressure Mean 92 Blood Pressure Mean [Lying] Blood Pressure Mean [Sitting (for 1 minute prior to obtaining)] Blood Pressure Mean [Standing (for 1 minute prior to obtaining)] Pulse Ox 99 Oxygen Delivery Method Room Air Positive well nourished and well developed Constitutional Narrative: Signs remarkable for elevated blood pressure 170/92. Patient states he was switched from metoprolol to Cardizem past week. His symptoms are related to when he takes his meds. Med list he is on flecainide. He was also noted to be on 0.8 mg of Flomax which is associated with orthostatic hypotension. General Appearance ED: well developed and NAD; Negative for cyanotic, diaphoretic or pallor HEENT Reports moist mucous membranes HEENT Narrative: Head is atraumatic and normocephalic. Eyes PERRL and EOMs intact bilaterally General Eye ED: Negative for pale conjunctiva or scleral icterus Neck no lymphadenopathy, supple and no JVD Chest Wall inspection of chest normal and palpation of chest normal Resp normal respiratory effort and clear to auscultation bilaterally Cardio regular rate, regular rhythm, S1 normal heart sound, S2 normal heart sound and no murmurs GI normal to inspection, nondistended, normoactive bowel sounds, non-tender and no masses; Negative for non-distended or hepatosplenomegaly GI Narrative: Slight tympany to percussion. There is no palpable pulsatile mass. There is no abdominal bruit. Palpation: soft Extremity normal to inspection Extremity Narrative: There is no asymmetry, swelling, discoloration, leg vein distention, palpable cords or tenderness along the distribution of the deep venous system. General Extremety ED: Negative for edema or tenderness General Extremity: Negative for edema Neuro oriented x3, CN's II-XII intact bilaterally and no sensory deficits noted Neuro Narrative: Observed and normal. There is no clonus. There is no Babinski sign noted. Sensorium / Orientation: alert Motor Exam: strength 5/5 throughout Psych mental status grossly normal Skin no rashes or lesions noted, no wounds and skin turgor normal General Skin Exam: Negative for elasticity normal, jaundice or pallor MDM MDM MDM Narrative Medical decision making narrative: Patient defines dizziness as lightheadedness with standing or changing position will obtain orthostatic vital signs. If positive he will receive IV fluids. Of note rectal exam was performed since he reported black stool and his stool is brown. Prostate is slightly enlarged. There is no tenderness. There is no fissures, fistulas or hemorrhoids noted. CBC was obtained to assess H&H. Electrolyte panel was obtained to assess renal function glucose and anion gap. EKG was performed at his primary care office and revealed a sinus rhythm rate of 78 with first-degree block. AR interval is 222 ms. He has a nonspecific intraventricular conduction delay with a QRS duration of 120 ms. QT duration 395 seconds. Willits is within normal range. Patient states his director epidemiology is Dr. Leon. His primary care physician is Dr. Acevedo who did call him prior to his arrival. History & Record Review Additional record(s) reviewed:: Prior outpatient record and Prior labs Lab Data Attestation: I reviewed the patient's lab results. Lab results narrative: CBC is normal. Basic metabolic panel does noted a creatinine of 1.36 with an estimated GFR 56. Glucose is 134 with a normal anion gap. Labs: Laboratory Results - last 24 hr 06/16/23 09:25 WBC 5.3 RBC 5.17 Hgb 15.6 Hct 47.7 MCV 92.3 MCH 30.2 MCHC 32.7 RDW Std Deviation 43.3 RDW Coeff of Praveena 12.8 Plt Count 94 L MPV 10.2 Immature Gran % (Auto) 0.400 Neut % (Auto) 68.9 Lymph % (Auto) 17.7 L [place] % (Auto) 10.1 H Eos % (Auto) 1.9 Baso % (Auto) 1.0 Absolute Neuts (auto) 3.6 Absolute Lymphs (auto) 0.93 Nucleated RBC % 0 Sodium 140 Potassium 4.0 Chloride 108 H Carbon Dioxide 28.0 Anion Gap 4 L BUN 18 Creatinine 1.36 H Estim Creat Clear Calc 66.67 Est GFR (MDRD) Af Amer 68 Est GFR (MDRD) Non-Af 56 L BUN/Creatinine Ratio 13.2 Glucose 134 H Calcium 8.8 EKG Initial EKG: Attestation: I personally reviewed and interpreted this EKG as follows: Interpretation: Atrial Flutter (Rate is 78. Rhythm strip was obtained and patient is in a flutter with a 2-1 block. This is atypical. Patient was recently converted to Cardizem. He states his director epidemiology Dr. Leon. AR interval is 210 ms. QRS duration 114 ms. QT duration is 186 ms. Willits is normal. There is no acute ischem) Management Discussion w/another healthcare provider: [employer] (Cussed with Dr. Leon. Patient is to call office for a visit next week. He was instructed to rise from a sitting or lying position slowly. He was instructed to continue taking his medication.) Discharge Plan Triage Chief Complaint: Hypertension ED Provider: Parks,Bryant Dx/Rx/DC Orders Clinical Impression: Atrial flutter, Hyperlipidemia, Orthostatic dizziness, Anticoagulant long-term use Instructions: ED Atrial Flutter, ED Dizziness, Uncertain Cause Prescriptions: No Action omeprazole 20 mg capsule,delayed release(DR/EC) 20 mg PO DAILY atorvastatin 10 mg tablet 10 mg PO QHS bupropion HCl 300 mg tablet extended release 24 hr 300 mg PO DAILY tamsulosin 0.4 mg capsule 0.8 mg PO QHS loratadine 10 mg tablet 10 mg PO DAILY cholecalciferol (vitamin D3) 50 mcg (2,000 unit) capsule 50 mcg PO DAILY dicyclomine 20 mg tablet 40 mg PO BID Eliquis 5 mg tablet 5 mg PO BID Qty: 180 3RF flecainide 100 mg tablet 100 mg PO Q12H Qty: 60 11RF losartan 25 mg tablet 25 mg PO DAILY diltiazem HCl 180 mg capsule,extended release 24 hr 180 mg PO DAILY Qty: 90 3RF Primary Care Provider: Ankur Acevedo Referrals: Leonard Dai MD [Med Staff - Active Staff] - Ankur Acevedo MD [Primary Care Provider] - Disposition Disposition: Home, Self Care
[2023-06-16 09:35] LABS: Absolute Lymphocyte Count 0.93 X10^3/uL (0.83-4.51); Absolute Neutrophil Count 3.6 X10^3/uL (2.0-7.7); Basophil# 0.05 X10^3/uL; Eosinophils% 1.9 % (0-5); Hematocrit 47.7 % (40-54); Hemoglobin 15.6 g/dL (13.0-16.5); Lymphocyte # 0.93 X10^3/ul (0.83-4.51); Lymphocyte % 17.7 % (19-41); Mean Corp Hgb Conc 32.7 g/dL (32-36); Mean Corpuscular Hgb 30.2 pg (27.0-32.0); Mean Corpuscular Volume 92.3 fL (80-94); Mean Platelet Vol. 10.2 fl (6.2-12.0); Monocyte# 0.53 X10^3/uL; Monocyte% 10.1 % (0-10); NRBC Flagged by Analyzer 0 % (0-5); Neutrophil # 3.62 X10^3/uL (2.7-7.7); Neutrophil % 68.9 % (47-70); POSITIVE COUNT YES; Platelet Count 94 K/mm3 (150-450); RBC Distribution Width CV 12.8 % (11.6-14.6); RBC Distribution Width SD 43.3 fl (35.1-43.9); Red Blood Count 5.17 M/mm3 (4.6-6.2); White Blood Count 5.3 K/mm3 (4.4-11.0)
[2023-06-16 09:44] LABS: Anion Gap 4 (5-15); BUN 18 mg/dL (7-18); BUN/Creat Ratio 13.2 RATIO (10-20); Calcium,Total 8.8 mg/dL (8.5-10.1); Chloride 108 mmol/L (98-107); Creatinine, Serum 1.36 mg/dL (0.70-1.30); EST Glomerular Filtration Rate 56 mL/min (>60); Est Glom Filt Rate - Afr Amer 68 mL/min (>60); Estimated Creatinine Clearance 66.67 ml/min; Glucose 134 mg/dL (74-106); Sodium Level 140 mmol/L (136-145)
[2023-06-16 09:46] VITALS: BP 138/83; BP 142/84; BP 145/78; PULSE 76; PULSE 77; PULSE 81
[2023-06-16 11:00] VITALS: BP 127/75; PULSE 67; RESP 18; O2SAT 99
[2023-06-16 13:00] VITALS: BP 130/82; PULSE 67; RESP 16; O2SAT 98
== END 2023-06-16 13:25 | disposition home or self-care (01) ==
PROVIDERS: Emergency Provider Emergency Medicine; PCP Family Medicine; Visit Provider Emergency Medicine
DX: I48.92 Unspecified atrial flutter (principal); I48.0 Paroxysmal atrial fibrillation; R42 Dizziness and giddiness; I10 Essential (primary) hypertension; I45.89 Other specified conduction disorders; Z79.01 Long term (current) use of anticoagulants; E78.00 Pure hypercholesterolemia, unspecified; Z79.899 Other long term (current) drug therapy
CPT/HCPCS: 80048; 85025; 93005; 99285

== ENCOUNTER → 2023-12-25 | Outpatient (CLI) | payer MEDICARE, OTHER, SELFPAY ==
[2023-12-25 17:46] LABS: Absolute Neutrophil Count 5.1 X10^3/uL (2.0-7.7); Basophil# 0.04 X10^3/uL; Basophil% 0.5 % (0-1); Eosinophil# 0.12 X10^3/uL; Eosinophils% 1.5 % (0-5); Hematocrit 45.6 % (40-54); Hemoglobin 15.2 g/dL (13.0-16.5); Lymphocyte % 21.7 % (19-41); Mean Corp Hgb Conc 33.3 g/dL (32-36); Mean Corpuscular Hgb 30.3 pg (27.0-32.0); Mean Platelet Vol. 10.7 fl (6.2-12.0); Monocyte% 10.2 % (0-10); NRBC Flagged by Analyzer 0 % (0-5); Neutrophil # 5.14 X10^3/uL (2.7-7.7); Neutrophil % 65.7 % (47-70); Platelet Count 135 K/mm3 (150-450); RBC Distribution Width CV 12.9 % (11.6-14.6); RBC Distribution Width SD 42.9 fl (35.1-43.9); Red Blood Count 5.01 M/mm3 (4.6-6.2); White Blood Count 7.8 K/mm3 (4.4-11.0)
[2023-12-25 17:54] LABS: Anion Gap 4 (5-15); BUN 21 mg/dL (7-18); BUN/Creat Ratio 17.1 RATIO (10-20); Calcium,Total 9.2 mg/dL (8.5-10.1); Chloride 108 mmol/L (98-107); Creatinine, Serum 1.23 mg/dL (0.70-1.30); EST Glomerular Filtration Rate 63 mL/min (>60); Est Glom Filt Rate - Afr Amer 76 mL/min (>60); Glucose 96 mg/dL (74-106); Sodium Level 138 mmol/L (136-145)
== END | disposition home or self-care (01) ==
LOC: MFPLAB 16:22
PROVIDERS: PCP Family Medicine; Visit Provider Family Medicine
DX: R11.0 Nausea (principal)
CPT/HCPCS: 36415; 80048; 85025

== ENCOUNTER → 2024-02-08 | Outpatient (CLI) | payer MEDICARE, OTHER, SELFPAY ==
--- NOTE | 2024-02-08 07:58 | CT_ITS ---
STUDY: CT CHEST WITHOUT CONTRAST REASON FOR EXAM: Male, 63 years old. CHEST PAIN RADIATION DOSAGE (If Supplied By Facility): CTDIvol = ( 12.19 ) mGy, DLP = ( 219.42 ) mGycm TECHNIQUE: Transaxial imaging was performed without the administration of intravenous contrast material. Cardiac over read examination. Individualized dose optimization techniques were used for this CT. COMPARISON: No relevant priors. FINDINGS: CHEST Mild increased linear markings at the lung bases suggestive of scarring. There is no demonstrated pleural abnormality. There are calcifications of the coronary arteries. There are small lymph nodes within the mediastinum, which are normal in size and morphology most compatible with reactive lymph hyperplasia. Normal hilar regions. Normal unenhanced pulmonary arteries. Normal aorta arch and descending thoracic aorta. Normal osseous structures. Small hiatal hernia. Calcified splenic granulomas. There is a 2.9 cm x 2.9 cm well-defined hypodensity in the left lobe of the liver suggestive of a cyst. CT/Limited Chest CT Cardiac Only IMPRESSION: Coronary artery calcification. Electronically Signed: Joseph Garcia MD at 12:47 EDT ,
--- NOTE | 2024-02-08 08:45 | CA.SCORE ---
Calcium Scoring Date of Study:: 02/08/24 Indications Indications: chest pain Coronary Calcium Scoring: High-resolution Computed Tomographic imaging of the chest was performed on [02/08/2024], with particular attention paid to the coronary arteries. Images from the examination were analyzed for the presence and extent of coronary artery calcification , using coronary calcium quantification software. The patient tolerated the procedure well and there were no complications. The results of the coronary calcification analysis are provided below. Findings Coronary Artery Left Main (LM): 217 Left Anterior Descending (LAD): 216 Left Circumflex (LCX): 7.7 Right Coronary Artery (RCA): 3.5 Total Agatston Score: 444.2 Percentile Rankin-75th percentile Calcium Scoring Interpretation: Different methods to categorize the overall amount of coronary plaque. Overall amount CAC SIS Visual of coronary plaque P1 Mild -100 <2 1-2 vessels with mild amount of plaque P2 Moderate 101-300 3-4 1-2 vessels with moderate amount, 3 vessels with mild amount of plaque P3 Severe 301-999 5-7 3 vessels with moderate amount, 1 vessel with severe amount of plaque P4 Extensive >1000 >8 2-3 vessels with severe amount of plaque Calcium Score: Severe: 3 vessels w/moderate amount, 1 vessel w/severe amt of plaque Conclusion: Moderate diffuse atherosclerotic plaquing noted more in the LAD territory.
== END | disposition home or self-care (01) ==
PROVIDERS: PCP Family Medicine; Referring Provider Physician Assistant Medical; Visit Provider Physician Assistant Medical
DX: R07.9 Chest pain, unspecified (principal)
CPT/HCPCS: 75571; 76380

== ENCOUNTER → 2024-05-23 | Outpatient (CLI) | payer MEDICARE, OTHER, SELFPAY ==
[2024-05-23 12:30] LABS: Absolute Lymphocyte Count 1.16 X10^3/uL (0.83-4.51); Absolute Neutrophil Count 4.1 X10^3/uL (2.0-7.7); Basophil# 0.04 X10^3/uL; Basophil% 0.7 % (0-1); Eosinophils% 1.7 % (0-5); Hemoglobin 14.9 g/dL (13.0-16.5); Lymphocyte # 1.16 X10^3/ul (0.83-4.51); Lymphocyte % 19.2 % (19-41); Mean Corp Hgb Conc 32.4 g/dL (32-36); Mean Corpuscular Hgb 30.2 pg (27.0-32.0); Mean Corpuscular Volume 93.1 fL (80-94); Mean Platelet Vol. 10.5 fl (6.2-12.0); Monocyte# 0.63 X10^3/uL; Monocyte% 10.4 % (0-10); NRBC Flagged by Analyzer 0 % (0-5); Neutrophil # 4.08 X10^3/uL (2.7-7.7); Neutrophil % 67.3 % (47-70); Platelet Count 119 K/mm3 (150-450); RBC Distribution Width CV 12.8 % (11.6-14.6); RBC Distribution Width SD 43.7 fl (35.1-43.9); Red Blood Count 4.94 M/mm3 (4.6-6.2); White Blood Count 6.1 K/mm3 (4.4-11.0)
[2024-05-23 13:05] LABS: Anion Gap 4 (5-15); BUN 16 mg/dL (7-18); BUN/Creat Ratio 13.7 RATIO (10-20); Chloride 107 mmol/L (98-107); Cholesterol 144 mg/dL (200); Creatinine, Serum 1.17 mg/dL (0.70-1.30); EST Glomerular Filtration Rate 66 mL/min (>60); Est Glom Filt Rate - Afr Amer 80 mL/min (>60); Glucose 111 mg/dL (74-106); High Density Lipoprotein 41 mg/dL; Potassium 4.2 mmol/L (3.5-5.1); Sodium Level 137 mmol/L (136-145); Triglycerides 72 mg/dL; Very Low Density Lipoprotein 14 mg/dL (5-40)
== END | disposition home or self-care (01) ==
LOC: MFPLAB 11:14
PROVIDERS: PCP Family Medicine; Referring Provider Family Medicine; Visit Provider Family Medicine
DX: Z00.00 Encounter for general adult medical examination without abnormal findings (principal); N52.9 Male erectile dysfunction, unspecified; D69.6 Thrombocytopenia, unspecified
CPT/HCPCS: 36415; 80048; 80061; 84403; 85025

== ENCOUNTER 2024-09-18 15:45 | Outpatient (CLI) | payer MEDICARE, OTHER, SELFPAY ==
--- NOTE | 2024-09-18 15:48 | RAD_ITS ---
PROCEDURE: ABDOMEN SINGLE VIEW 09/18/2024 REASON FOR EXAM: ABDOMINAL PAIN TECHNIQUE: Single view abdomen. COMPARISON: None FINDINGS: Bowel gas: Bowel gas pattern is remarkable for mild constipation. No evidence of bowel obstruction. Calcifications: No suspicious calcifications. Bones: There are degenerative changes of the spine. Other: RAD/Abdomen Single View IMPRESSION: CONSTIPATION. Reading Location: [facility]
[2024-09-18 17:55] LABS: Absolute Lymphocyte Count 1.52 X10^3/uL (0.83-4.51); Basophil# 0.04 X10^3/uL; Basophil% 0.5 % (0-1); Eosinophil# 0.13 X10^3/uL; Eosinophils% 1.7 % (0-5); Hematocrit 44.6 % (40-54); Lymphocyte # 1.52 X10^3/ul (0.83-4.51); Lymphocyte % 20.4 % (19-41); Mean Corp Hgb Conc 33.6 g/dL (32-36); Mean Corpuscular Hgb 30.1 pg (27.0-32.0); Mean Corpuscular Volume 89.4 fL (80-94); Mean Platelet Vol. 10.6 fl (6.2-12.0); Monocyte# 0.76 X10^3/uL; Monocyte% 10.2 % (0-10); NRBC Flagged by Analyzer 0 % (0-5); Neutrophil # 4.97 X10^3/uL (2.7-7.7); Neutrophil % 66.7 % (47-70); Platelet Count 113 K/mm3 (150-450); RBC Distribution Width CV 13.1 % (11.6-14.6); RBC Distribution Width SD 42.5 fl (35.1-43.9); Red Blood Count 4.99 M/mm3 (4.6-6.2); White Blood Count 7.5 K/mm3 (4.4-11.0)
[2024-09-18 18:47] LABS: PSA,Total- Diagnostic 3.66 ng/mL (0.00-4.00)
[2024-09-18 18:51] LABS: ALB/GLOB Ratio 1.7 RATIO (0.9-2.4); AST(SGOT) 18 U/L (<=37); Alanine Aminotransfer ALT/SGPT 19 U/L (<=46); Albumin, Serum 4.1 g/dL (3.4-4.8); Alkaline Phosphatase 65 U/L (40-129); Anion Gap 10 (5-15); BUN 17 mg/dL (4-19); BUN/Creat Ratio 12.7 RATIO (10-20); Calcium,Total 9.1 mg/dL (7.6-11.0); Carbon Dioxide 24.4 mmol/L (21.0-32.0); Chloride 104 mmol/L (98-108); Creatinine, Serum 1.36 mg/dL (0.70-1.20); EST Glomerular Filtration Rate 57 (>60); Globulin 2.5 g/dL (2.2-4.2); Glucose 92 mg/dL (70-99); Potassium 3.8 mmol/L (3.3-5.1); Protein, Total 6.6 g/dL (5.9-8.4); Sodium Level 138 mmol/L (133-145)
== END 2024-09-18 23:59 | disposition home or self-care (01) ==
LOC: MTLAB 15:46
PROVIDERS: PCP Family Medicine; Referring Provider Family Medicine; Visit Provider Family Medicine
DX: R35.89 Other polyuria (principal); R10.9 Unspecified abdominal pain; R30.0 Dysuria
CPT/HCPCS: 36415; 74018; 80053; 84153; 85025; 87086